=== PATIENT | female | born 1950 | race Caucasian/White ===

== ENCOUNTER → 2019-01-05 | Outpatient (CLI) | payer MEDICARE ==
[~2019-01-05] MED LIST: AZIT250 PO; Aspirin EC81 MG PO; Flonase 0.05% N16 GM; LEVSOD75 PO; Metformin HCl500 MG PO
[2019-01-05 12:39] LABS: BASOPHILS ABSOLUTE AUTO 0.07 K/mm3 (0.00-0.23); BASOPHILS PERCENT AUTO 1 % (0-2); EOSINOPHILS PERCENT AUTO 1 % (0-6); Hematocrit 44.9 % (33.0-51.0); Hemoglobin 14.7 g/dL (11.5-16.0); IMMATURE GRAN ABSOLUTE AUTO 0.03 K/mm3 (0.00-0.10); IMMATURE GRAN PERCENT AUTO 0 % (0-1); LYMPHOCYTES ABSOLUTE AUTO 1.65 K/mm3 (0.84-5.20); LYMPHOCYTES PERCENT AUTO 19 % (21-46); MONOCYTES ABSOLUTE AUTO 0.75 K/mm3 (0.16-1.47); MONOCYTES PERCENT AUTO 9 % (4-13); Mean Corpuscular HGB 29.7 pg (26.0-34.0); Mean Corpuscular HGB Conc 32.7 g/dL (31.5-36.5); Mean Corpuscular Volume 91 fL (80-100); NEUTROPHILS ABSOLUTE AUTO 6.08 K/mm3 (1.96-9.15); NEUTROPHILS PERCENT AUTO 70 % (41-73); Platelet Count 323 K/mm3 (150-400); RDW Coefficient Variation 14.5 % (11.7-14.2); RDW Standard Deviation 47.9 fL (35.1-46.3); Red Blood Cell Count 4.95 M/mm3 (3.80-5.20); White Blood Cell Count 8.68 K/mm3 (4.00-11.30)
[2019-01-05 13:35] LABS: International Normalized Ratio 0.98; Prothrombin Time Results 10.4 Sec (9.7-11.5)
== END | disposition home or self-care (01) ==
LOC: LAB SHORT 12:34 → LAB EV 12:34
PROVIDERS: Family Medicine
DX: Z79.01 Long term (current) use of anticoagulants (principal); Z51.81 Encounter for therapeutic drug level monitoring; C80.0 Disseminated malignant neoplasm, unspecified
CPT/HCPCS: 85025; 85610; 85730

== ENCOUNTER 2019-01-06 13:46 | Inpatient (IN) | payer MEDICARE ==
[~2019-01-06] VITALS: Ht 160 cm; Wt 77.8 kg
[2019-01-06] MEDS ORDERED: AZIT250 PO (14:26)
[2019-01-06] MEDS ORDERED: Flonase 0.05% N16 GM (14:26)
[2019-01-06] MEDS ORDERED: Metformin HCl500 MG PO (14:26)
[2019-01-06 15:06] LABS: BASOPHILS ABSOLUTE AUTO 0.05 K/mm3 (0.00-0.23); BASOPHILS PERCENT AUTO 1 % (0-2); EOSINOPHILS ABSOLUTE AUTO 0.11 K/mm3 (0.00-0.68); EOSINOPHILS PERCENT AUTO 1 % (0-6); Hemoglobin 14.3 g/dL (11.5-16.0); IMMATURE GRAN ABSOLUTE AUTO 0.03 K/mm3 (0.00-0.10); IMMATURE GRAN PERCENT AUTO 0 % (0-1); LYMPHOCYTES ABSOLUTE AUTO 1.94 K/mm3 (0.84-5.20); LYMPHOCYTES PERCENT AUTO 21 % (21-46); MONOCYTES ABSOLUTE AUTO 0.82 K/mm3 (0.16-1.47); MONOCYTES PERCENT AUTO 9 % (4-13); Mean Corpuscular HGB 29.7 pg (26.0-34.0); Mean Corpuscular HGB Conc 32.5 g/dL (31.5-36.5); Mean Corpuscular Volume 92 fL (80-100); NEUTROPHILS ABSOLUTE AUTO 6.41 K/mm3 (1.96-9.15); NEUTROPHILS PERCENT AUTO 69 % (41-73); Platelet Count 339 K/mm3 (150-400); RDW Coefficient Variation 14.2 % (11.7-14.2); RDW Standard Deviation 47.7 fL (35.1-46.3); Red Blood Cell Count 4.81 M/mm3 (3.80-5.20); White Blood Cell Count 9.36 K/mm3 (4.00-11.30)
[2019-01-06 15:20] LABS: Alanine Aminotransfer (ALT/SGP 30 U/L (12-78); Albumin, Blood 3.3 g/dL (3.4-5.0); Albumin/Globulin Ratio 0.6 (0.8-1.8); Alk Phos 74 U/L (50-136); Anion Gap 8 mmol/L (6-16); Aspartate Aminotrans (AST/SGOT 35 U/L (12-37); Bilirubin, Total 0.5 mg/dL (0.1-1.0); Blood Urea Nitrogen 12 mg/dL (8-24); Bun/Creatinine Ratio 18.1 (12.0-20.0); CO2, Blood 26 mmol/L (21-32); Chloride, Blood 105 mmol/L (98-108); Creatinine, Blood 0.66 mg/dL (0.40-1.00); Globulin, Blood 5.1 g/dL (2.2-4.0); Glomerular Filtration Rate >60 (60-); Glucose, Blood 106 mg/dL (70-99); Potassium, Blood 4.2 mmol/L (3.5-5.5); Sodium, Blood 139 mmol/L (136-145); Total Protein, Blood 8.4 g/dL (6.4-8.2); Troponin I <0.015 ng/mL (0.000-0.040)
[2019-01-06] MEDS ORDERED: LEVSOD75 PO (16:38)
[2019-01-06] MEDS ORDERED: Aspirin EC81 MG PO (16:39)
--- NOTE | 2019-01-06 19:00 | NUR ---
Initial Visit: Palliative Care Consult for Advanced Care Planning, AD/POLST. Pt is A&Ox4 and reports a tolerable pain level of 4/10. She states the pain worsens with coughing. Pt also reports 6/7 anxiety and 4/7 depression. Pt Natan is present during visit. Engaged in therapeutic conversations regarding goals of care. Pt reports that she lives at home with Natan and has adequate support between family, friends, and neighbors. She is of Orthodoxy nico but has not practiced this methodist is some time. Pt reports that she is independent and does not require assistance with her ADLs. Pt and Natan report a lot of the anxiety is due to not knowing exactly what to do and the waiting for tests and results. Allowed Pt and to express concerns and frustrations. Natan states Tiarra (Pt) has always dealt with the bills and does not even know where to begin. Pt states that she really has not had a chance to process everything at this time. She states that she is waiting to know exactly what she is dealing with. Encouraged Pt and to tell each other fears and to start thinking about plans for any scenario. Discussed AD/POLST and Pt expresses interest. Educated Pt on each section of forms and educated on risk factors. Pt denies need for any intervention for her anxiety at this time. She reports distraction helps manage her anxiety. Recommended to Pt to discuss with her PCP regarding her depression symptoms as well. No other concerns at this time. Plan: Obtain copy of POLST/AD once completed. Will remain available.
[2019-01-07 05:29] LABS: International Normalized Ratio 1.01; Prothrombin Time Results 10.7 Sec (9.7-11.5)
--- NOTE | 2019-01-07 05:46 | NUR ---
SHIFT SUMMARY PT REPORTS SHE SLEPT WELL LAST NIGHT. AOX4. DENIES N/V. VSS. REPORTS SOB W/EXERTION, SPO2 >90% ON 2L SUPPLEMENTAL O2 W/EVEN & UNLABOURED BREATHING. INSPIRATORY WHEEZES HEARD IN RUL/RLL. PT REPORTS 5/10 PAIN IN R SIDE OF NECK & CHEST, MEDICATED PER ORDERS. R SIDE OF NECK HAS A GOLFBALL SIZE SWOLLEN MASS, WHICH PT & STATE HAS GOTTEN WORSE. CALL LIGHT IS IN REACH & I WILL CONTINUE TO MONITOR PT.
--- NOTE | 2019-01-07 14:53 | NUR ---
PATIENT ALERT AND ORIENTED. GETS VERY SOB WITH MINIMAL MOVEMENT SO OXYGEN INCREASED BEFORE MOVING TO BSC OR BATHROOM. HUMAN SERVICES MANAGER AND ONCOLOGY HAVE BEEN IN TO SEE PATIENT. DOWN TO RADIOLOGY FOR BIOPSY.COOPERATIVE. FAIRLY PLEASANT CONSIDERING DIAGNOSIS. REPORT TO BUFFY CARO
--- NOTE | 2019-01-07 18:29 | NUR ---
SHIFT SUMMARY PATIENT HAS HAD NO ACUTE CHANGES. SHE IS REQUIRING 2L O2 AT REST. AND THEN 4L O2 WITH EXERTION. SHE IS IN GOOD SPIRITS, ABLE TO MAKE HER NEEDS KNOWN.
--- NOTE | 2019-01-08 07:29 | NUR ---
NOC SHIFT SUMMARY PT IS PLEASANT AND COOPERATIVE WITH CARE. SHE IS ON 2LNC THIS NIGHT. VSS. PT WAS ABLE TO SLEEP FOR MUCH OF THE NIGHT. THIS MORNING WITH 0600 MED PASS SHE COMPLAINED OF DIFFICULTY SWOLLOWING HER MEDS. RESP ARE STILL EVEN AND UNLABORED. SPEAKS NORMALLY. INFORMED ONCOMING RN OF THIS CHANGE. PT APPEARS IN NO ACUTE DISTRESS AT THIS TIME.
--- NOTE | 2019-01-08 18:44 | NUR ---
PATIENT CONTINUES TO BE SOB AND ON 3 L O2. SHE IS A/O AND COMPLIANT WITH CARES BUT STATES SHE IS FEELING WEAKER. SHE WANTED A SHOWER EARLY ON IN THE SHIFT BUT THE DAY PROGRESSED SHE REFUSED AND SAID SHE DID NOT HAVE THE ENERGY. SHE REQUESTED A BED BATH. PATIENT ON MECH SOFT DUE TO SWALLOWING DIFFICULITES.
--- NOTE | 2019-01-09 07:50 | NUR ---
NOC SHIFT SUMMARY PT IS PLEASANT AND COOPERATIVE WITH CARE THIS NIGHT. AAOX4. PAIN WELL CONTROLLED. SHE DID HAVE A COUGHING SPELL THAT RESULTED IN SOME SOB. RT CALLED AND WAS GIVEN BREATHING TREATMENT. SHE RECOVERED SHORTLY AFTER. HAS SLEPT ONLY OFF AND ON THIS NIGHT. HAS CONTINUED TO REQUIRE 4LNC. VSS. REPORT TO ONCOMING RN.
--- NOTE | 2019-01-09 18:36 | NUR ---
SHIFT SUMMARY DIFFICULTY SWALLOWING DUE TO MEDIASTINAL MASS WITH METS. PLEASANT A AND OX3. ROXICODONE AND TYLENOL SCHEDULED FOR PAIN CONTROL. HX COPD WITH PNEUMONIA. STANDBY ASSIST WITH FWW. PLAN TO GO HOME AND SEE DR. HOANG OUTPATIENT.
--- NOTE | 2019-01-10 05:35 | NUR ---
SHIFT SUMMARY PT DID NOT SLEEP WELL THIS EVENING. PT REPORTS THAT SHE CANNOT LAY FLAT DUE TO HER BREATHING AND SWALLOWING BUT COULD NOT FIND A COMFORTABLE POSITION FOR SLEEPING SITTING UP. OFFERED RECLINER BUT PATIENT DECLINED. PT FELL ASLEEP OFF AND ON SITTING UP. REPORTED GENERALIZED PAIN "FROM BEING IN BED SO MUCH". MEDICATED ORDERED Q 4 HOUR 5 MG ROXICODONE. PT REFUSED SCHEDULED TYLENOL STATING THAT IT WAS DIFFICULT FOR HER TO EAT IT CRUSHED AND THAT SHE WAS UNABLE TO SWALLOW THEM WHOLE. PT ON 2.5 L O2 NC. HOME O2 EVAL DONE YESTERDAY SO PT COULD GO HOME WITH O2. PT HAS NAGGING MOSTLY NONPRODUCTIVE COUGH THAT MAKES IT DIFFICULT FOR HER TO BREATH AT TIMES. HOWEVER PT RECOVERS QUICKLY. OTHERWISE NO ACUTE CHANGES. VSS. WILL CONTINUE TO MONITOR AND REPORT TO DAY RN.
--- NOTE | 2019-01-10 07:25 | NUR ---
DR. HOANG SAW PT THIS A.M. AND REPORTED NO BIOPSY RESULTS HAD BEEN RECEIVED. PT STATED HER PREFERENCE TO REMAIN IN THE HOSPITAL UNTIL TOMORROW BASED ON ANXIETY AND SWALLOWING DIFFICULTIES. ALL ABOVE REPORTED TO DR. DOWD.
--- NOTE | 2019-01-10 18:13 | NUR ---
SHIFT SUMMARY ABLE TO DISCHARGE WHEN READY BUT REQUESTED TO STAY UNTIL TOMORROW DUE TO ANXIETY DUE TO NEW CANCER DX AND SWALLOWING DIFFICULTIES. ABULATES WITH WALKER IN ROOM. MEDICATED FOR PAIN ONCE THIS SHIFT. FAMILY IN TO VISIT THIS AFTERNOON. OX4. CONTINENT. PLAN TO FOLLOW UP WITH DR. HOANG FOR OUTPATIENT TREATMENT.
--- NOTE | 2019-01-11 05:21 | NUR ---
SHIFT SUMMARY PT CONTINUED TO HAVE A DIFFICULT TIME SLEEPING. ATTEMPTED THE RECLINER THAT PT HAD PREVIOUSLY REFUSED AND PT WAS MORE UNCOMFORTABLE IN IT THAN IN THE BED. PT MUST BE SITTING UP VERY HIGH OR SHE DOES NOT FEEL LIKE SHE CAN BREATH WELL ENOUGH BUT THIS MAKES IT DIFFICULT FOR HER TO BE COMFORTABLE. PT PAINFUL FROM ODD POSITIONING. MEDICATED ORDERED WITH SCHEDULED ROXICODONE. PT ANXIOUS AT TIMES, ESPECIALLY REGARDING HER BREATHING. MEDICATED X 2 W/ XANAX. PT CONTINUES TO GET SOB W/ AMBULATION. ON 3-4 L THIS EVENING WITH O2 SATS IN THE LOW TO MID 90'S. PT RESTING IN BED AT THIS TIME. VSS. WILL CONTINUE TO MONITOR AND REPORT TO DAY RN.
--- NOTE | 2019-01-11 19:22 | NUR ---
SHIFT SUMMARY PT A&Ox4. CALM AND COOPERATIVE WITH CARE. PT SITTING ON SIDE OF BED FOR MAJORITY OF SHIFT. UP WITH 1 PERSON ASSIST TO BSC. PT REPORTS UPPER CHEST/CLAVICAL PAIN AND HEADACHE, MEDICATED WITH SCHEDULED ROXICODONE X2. PT SOB WITH EXERTION, IN FOLWERS POSITION, 3-4L O2 VIA NC. PT DENIES NAUSEA. PT TAKING MED WITH APPLESAUCE. PT RECEIVING PO ANTIBIOTICS AND STEROIDS. VSS. NO OTHER ACUTE CHANGES NOTED DURING SHIFT. REPORT GIVEN TO ONCOMING RN.
--- NOTE | 2019-01-12 04:34 | NUR ---
SHIFT SUMMARY PT HAD DIFFICULT NIGHT AGAIN THIS EVENING. APPEARS TO STRUGGLE MORE WITH BREATHING AND ANXIETY DURING THE NIGHT. REQUESTED MULTIPLE TIMES FOR O2 TO BE TURNED UP TO 4 L. REMAINED 3-4 L THROUGHOUT THE NIGHT. VERY SOB W/ AMBULATION. CONTINUES TO STRUGGLE TO SWALLOW. WAS UNABLE TO EAT DINNER, REQUESTED SHERBERT ICE CREAM MULTIPLE TIMES. MEDICATED X 2 WITH XANAX, SLEEPING FOR SHORT TIMES FOLLOWING. PT PRODUCED A SMALL AMOUNT OF SPUTUM THAT WAS THICK AND BROWN. PT HAD DIFFICULT TIME GETTING SPUTUM TO COUGH UP. PT ALSO HAS DIFFICULT TIME GETTING COMFORTABLE DUE TO HAVING TO SIT VERY HIGH UP IN ORDER TO FEEL LIKE SHE CAN BREATH. MEDICATED WITH SCHEDULED ROXICODONE. PT RESTING AT THIS TIME. VSS. WILL CONTINUE TO MONITOR.
[2019-01-12 11:22] LABS: Albumin, Blood 3.1 g/dL (3.4-5.0); Anion Gap 7 mmol/L (6-16); Blood Urea Nitrogen 24 mg/dL (8-24); Bun/Creatinine Ratio 39.7 (12.0-20.0); CO2, Blood 31 mmol/L (21-32); Calcium, Blood 9.3 mg/dL (8.5-10.1); Chloride, Blood 103 mmol/L (98-108); Creatinine, Blood 0.61 mg/dL (0.40-1.00); Glomerular Filtration Rate >60 (60-); Glucose, Blood 150 mg/dL (70-99); Phosphorus, Blood 2.5 mg/dL (2.5-4.9); Sodium, Blood 141 mmol/L (136-145)
--- NOTE | 2019-01-12 18:32 | NUR ---
PT IS VERY SOB AND ANXIOUS, XANAX PO Q [address] HOANG WAS INTO TO SEE PT THIS AFTERNOON AT APPROX 1300. DISCUSSED CURRENT DIAGNOSIS AND CHEMO TREATMENT TO BEGIN TODAY. NEW IV STARTED LFA #20 BY RADHA CARO. PT PREMEDICATED WITH IV DECADRON AND IV ZOFRAN 30 MIN PRIOR TO CHEMO. ETOPOSIDE INFUSED WITHOUT DIFFICULTY, VITALS STABLE, IV SITE PATENT, FLUSHING WELL, NO REDNESS NOTED, IV FLUSHED WITH 30ML NS AND CARBOPLATIN HUNG WITH NEW TUBING. PT ALSO TOLERATED THIS WELL, IV SITE REMAINS PATENT, NO REDNESS. NO C/O OF N/V OR OTHER DISCOMFORT. WILL CONTINUE TO MONITOR AND REPORT TO ONCOMING VANIA
--- NOTE | 2019-01-13 03:44 | NUR ---
SHIFT SUMMARY PT ADMITTED FOR POST OBSTRUCTIVE PENUMONIA. FULL CODE. ADA DIET. ASPIRATION PRECAUTIONS. NO STRAW. NECTOR THICK LIQUIDS. UP IN CHAIR FOR MEALS. CBG AT AC AND HS. MEDS WHOLE, HALF, OR CRUSHED IN APPLESAUCE. LOVENOX FOR DVT PROPHYLAXIS. PT HAD FIRST DOSE OF CHEMO YESTERDAY AND HAS APPEARED TO TOLLERATE THIS WELL SO FAR. 1 PERSON ASSIST TO BSC. 20G IV TO R FA AND LFA FOR CHEMO. 4L O2 VIA NC. 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 THE PT HAS APPEARED VERY LETHARGIC THROUGHOUT THE SHIFT SO FAR. THE PT IS REFUSING NECTOR THICK LIQUIDS AND HAS INSISTED THIN. THE PT IS ALERT, ORIENTED, PLEASENT, AND COOPERATIVE WITH CARE. THE PT IS NOTED TO HAVE COUGH AND TO PRIMARILY SIT AT BEDSIDE. WILL CONTINUE TO MONITOR.
[2019-01-13 05:42] LABS: BASOPHILS ABSOLUTE AUTO 0.01 K/mm3 (0.00-0.23); BASOPHILS PERCENT AUTO 0 % (0-2); EOSINOPHILS PERCENT AUTO 0 % (0-6); Hematocrit 47.7 % (33.0-51.0); Hemoglobin 14.9 g/dL (11.5-16.0); IMMATURE GRAN ABSOLUTE AUTO 0.12 K/mm3 (0.00-0.10); IMMATURE GRAN PERCENT AUTO 1 % (0-1); LYMPHOCYTES ABSOLUTE AUTO 0.97 K/mm3 (0.84-5.20); LYMPHOCYTES PERCENT AUTO 7 % (21-46); MONOCYTES ABSOLUTE AUTO 1.32 K/mm3 (0.16-1.47); MONOCYTES PERCENT AUTO 9 % (4-13); Mean Corpuscular HGB 29.7 pg (26.0-34.0); Mean Corpuscular HGB Conc 31.2 g/dL (31.5-36.5); Mean Platelet Volume 9.1 fL (9.1-12.4); NEUTROPHILS ABSOLUTE AUTO 11.83 K/mm3 (1.96-9.15); NEUTROPHILS PERCENT AUTO 83 % (41-73); Platelet Count 337 K/mm3 (150-400); RDW Coefficient Variation 15.1 % (11.7-14.2); RDW Standard Deviation 52.9 fL (35.1-46.3); Red Blood Cell Count 5.01 M/mm3 (3.80-5.20); White Blood Cell Count 14.25 K/mm3 (4.00-11.30)
[2019-01-13 05:46] LABS: Mean Corpuscular Volume 95 fL (80-100)
[2019-01-13 06:05] LABS: Alanine Aminotransfer (ALT/SGP 100 U/L (12-78); Albumin/Globulin Ratio 0.6 (0.8-1.8); Alk Phos 81 U/L (50-136); Anion Gap 6 mmol/L (6-16); Aspartate Aminotrans (AST/SGOT 47 U/L (12-37); Bilirubin, Total 0.4 mg/dL (0.1-1.0); Blood Urea Nitrogen 22 mg/dL (8-24); Bun/Creatinine Ratio 37.8 (12.0-20.0); CO2, Blood 30 mmol/L (21-32); Chloride, Blood 106 mmol/L (98-108); Creatinine, Blood 0.58 mg/dL (0.40-1.00); Glomerular Filtration Rate >60 (60-); Glucose, Blood 142 mg/dL (70-99); Potassium, Blood 4.6 mmol/L (3.5-5.5); Sodium, Blood 142 mmol/L (136-145)
--- NOTE | 2019-01-13 14:45 | NUR ---
LFA IV SITE FLUSHED WITH 20ML NS, GOOD BLOOD RETURN AND FLUSHED AGAIN. ETOPOSIDE VERIFIED WITH RADHA CARO AND STARTED TO LFA SITE. PT C/O OF BURNING AND ETOPOSIDE STOPPED. NO REDNESS OR SWELLING NOTED AND SITE NOT PAINFUL TO TOUCH. NEW SITE STARTED ON LFA AND ETOPOSIDE INFUSING WITHOUT DIFFICULTY. OLD SITE DISCONTINUED, NO REDNESS, PAIN OR SWELLING NOTED. WILL CONTINUE TO MONITOR
--- NOTE | 2019-01-13 16:00 | NUR ---
ETOPOSIDE INFUSION COMPLETED. NO C/O PAIN OR TENDERNESS AT NEW IV SITE. DISCONTINUED SITE REMAINS WITHOUT REDNESS, PAIN OR SWELLING. TUBING REMOVED FROM PUMP, PLACED IN CHEMO BAG AND TAKEN TO DIRTY HOLD AND PLACED IN CHEMO BIN.
--- NOTE | 2019-01-13 19:01 | NUR ---
PT HAS HAD A MORE DIFFICULT TIME BREATHING TODAY AND INCREASED ANXIETY. FLUTTER VALVE GIVEN AND APPEARS TO HELP WITH BREATHING, MEDICATED FOR ANXIETY PER EMAR. SHE TOLERATED CHEMO, NO REPORTS OF NAUSEA. ONE DOSE REMAINS FOR TOMORROW. NO ACUTE CHANGES NOTED, WILL CONTINUE TO MONITOR AND REPORT TO ONCOMING RN
--- NOTE | 2019-01-14 02:25 | NUR ---
rt fa iv pulled by PT . ike wnl. secured lt fa IV with tanvi.
--- NOTE | 2019-01-14 02:52 | NUR ---
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 She is sitting on side of bed unable to lay flat or even in bed with HOB elevated. She denies acute pain and has some anxiety about dyspnea related to lung cancer with mets. Scheduled roxycodone 5 to 10 mg declined but convinced pt it may help her rest. Meds crushed in applesauce, poor appetite. PT has been declining nectar thick fluids. Lung sounds with rhonchi and wheeze, on 4 l nc and still has some dyspnea, dislikes neb treatments. Had several iv chemotherapy given and had 2 IV sites. PT removed rt forearm IV. PT confirms full code status. Has 2 adult Children, 5 Grandchildren. Has been tobacco smoker. Support offered. HAs xanax q 6 hrs prn. up with 1 assist to bathroom. PT on chemo precautions.
[2019-01-14 05:39] LABS: BASOPHILS ABSOLUTE AUTO 0.02 K/mm3 (0.00-0.23); BASOPHILS PERCENT AUTO 0 % (0-2); EOSINOPHILS ABSOLUTE AUTO 0.02 K/mm3 (0.00-0.68); EOSINOPHILS PERCENT AUTO 0 % (0-6); Hematocrit 47.2 % (33.0-51.0); Hemoglobin 14.8 g/dL (11.5-16.0); IMMATURE GRAN PERCENT AUTO 1 % (0-1); LYMPHOCYTES ABSOLUTE AUTO 1.19 K/mm3 (0.84-5.20); LYMPHOCYTES PERCENT AUTO 7 % (21-46); MONOCYTES ABSOLUTE AUTO 1.27 K/mm3 (0.16-1.47); MONOCYTES PERCENT AUTO 8 % (4-13); Mean Corpuscular HGB Conc 31.4 g/dL (31.5-36.5); Mean Corpuscular Volume 96 fL (80-100); Mean Platelet Volume 9.3 fL (9.1-12.4); NEUTROPHILS ABSOLUTE AUTO 13.76 K/mm3 (1.96-9.15); NEUTROPHILS PERCENT AUTO 84 % (41-73); Platelet Count 325 K/mm3 (150-400); RDW Coefficient Variation 14.9 % (11.7-14.2); RDW Standard Deviation 52.3 fL (35.1-46.3); Red Blood Cell Count 4.93 M/mm3 (3.80-5.20); White Blood Cell Count 16.36 K/mm3 (4.00-11.30)
[2019-01-14 06:28] LABS: Alanine Aminotransfer (ALT/SGP 117 U/L (12-78); Albumin/Globulin Ratio 0.6 (0.8-1.8); Alk Phos 83 U/L (50-136); Anion Gap 6 mmol/L (6-16); Aspartate Aminotrans (AST/SGOT 68 U/L (12-37); Bilirubin, Total 0.6 mg/dL (0.1-1.0); Blood Urea Nitrogen 30 mg/dL (8-24); Bun/Creatinine Ratio 44.8 (12.0-20.0); CO2, Blood 28 mmol/L (21-32); Calcium, Blood 9.4 mg/dL (8.5-10.1); Chloride, Blood 109 mmol/L (98-108); Creatinine, Blood 0.67 mg/dL (0.40-1.00); Globulin, Blood 4.7 g/dL (2.2-4.0); Glomerular Filtration Rate >60 (60-); Glucose, Blood 160 mg/dL (70-99); Potassium, Blood 4.6 mmol/L (3.5-5.5); Sodium, Blood 143 mmol/L (136-145); Total Protein, Blood 7.7 g/dL (6.4-8.2)
--- NOTE | 2019-01-14 14:52 | NUR ---
Etoposide finished infusing. Pt tolerated well, continues to be SOB-especially with movement. IV site flushes well without redness or swelling.
[2019-01-14 17:28] LABS: PCO2 Arterial 51.3 mmHg (35-45); PO2 Arterial 65.5 mmHg (80-100); pH Blood Arterial 7.34 (7.35-7.45)
--- NOTE | 2019-01-14 18:33 | NUR ---
SHIFT SUMMARY PT UP IN CHAIR MOST OF DAY. INCREASED RESP DISTRESS WITH ANY MOVEMENT AND REQUIRES SEVERAL MINUTES TO RECOVER WITH COACHING ON RESP. AT BEDSIDE THIS MORNING. REPORTED SHE "JUST COULDN'T KEEP GOING LIKE THIS" DESCRIBING HER ONGOING RESP DISTRESS/SOB. GAVE XANAX AND SPOKE WITH MD ABOUT PTS FEELING SO POORLY. SEE NEW ORDERS. MORE DROWSY SINCE EXTRA 0.5MG LEWIS OF XANAX GIVEN. NOT EATING DUE TO TAKING SO MUCH ENERGY TO EAT AND BREATH WELL. 3RD DOES OF CHEMO GIVEN BY LUBE ATTENDANT TODAY.
[2019-01-15 05:14] LABS: BASOPHILS ABSOLUTE AUTO 0.01 K/mm3 (0.00-0.23); BASOPHILS PERCENT AUTO 0 % (0-2); EOSINOPHILS PERCENT AUTO 0 % (0-6); Hematocrit 48.1 % (33.0-51.0); IMMATURE GRAN ABSOLUTE AUTO 0.06 K/mm3 (0.00-0.10); IMMATURE GRAN PERCENT AUTO 0 % (0-1); LYMPHOCYTES ABSOLUTE AUTO 0.91 K/mm3 (0.84-5.20); LYMPHOCYTES PERCENT AUTO 6 % (21-46); MONOCYTES ABSOLUTE AUTO 0.52 K/mm3 (0.16-1.47); MONOCYTES PERCENT AUTO 4 % (4-13); Mean Corpuscular HGB 29.8 pg (26.0-34.0); Mean Corpuscular HGB Conc 31.2 g/dL (31.5-36.5); Mean Corpuscular Volume 96 fL (80-100); Mean Platelet Volume 9.5 fL (9.1-12.4); NEUTROPHILS PERCENT AUTO 90 % (41-73); Platelet Count 272 K/mm3 (150-400); RDW Coefficient Variation 15.1 % (11.7-14.2); RDW Standard Deviation 52.3 fL (35.1-46.3); Red Blood Cell Count 5.03 M/mm3 (3.80-5.20)
--- NOTE | 2019-01-15 05:56 | NUR ---
SHIFT SUMMARY PT IS A 68 Y/O FEMALE, ADMITTED FOR POST-OBSTUCTIVE PNEUMONIA. THE PT HAS BEEN VISIBLY SHORT OF BREATH THROUGH THE NIGHT, OCCASIONALLY TRIPODING AT THE SIDE OF THE BED, THOUGH HER O2 SATS REMAINED IN THE LOW-MID 90S. SHE WAS MEDICATED FOR CHEST PAIN WITH SCHEDULED PAIN MEDICATIONS DURING THE NIGHT, AND WAS MEDICATED WITH XANAX ONCE DURING THE NIGHT FOR ANXIETY RELATED TO HER ACUTE SHORTNESS OF BREATH. SHE DENIED ANY COMPLAINTS OF NAUSEA. PT'S HEART RATE WAS ELEVATED THROUGH THE NIGHT IN THE 110S, ALL OTHER VITALS REMAINED STABLE. NO OTHER ACUTE CHANGES IN PT CONDITION NOTED. WILL CONTINUE TO MONITOR AND TREAT PER EMAR UNTIL HAND OFF TO DAY SHIFT.
[2019-01-15 06:37] LABS: Alanine Aminotransfer (ALT/SGP 153 U/L (12-78); Albumin, Blood 3.2 g/dL (3.4-5.0); Albumin/Globulin Ratio 0.7 (0.8-1.8); Alk Phos 97 U/L (50-136); Anion Gap 5 mmol/L (6-16); Aspartate Aminotrans (AST/SGOT 81 U/L (12-37); Bilirubin, Total 0.7 mg/dL (0.1-1.0); Blood Urea Nitrogen 35 mg/dL (8-24); Bun/Creatinine Ratio 50.9 (12.0-20.0); CO2, Blood 29 mmol/L (21-32); Calcium, Blood 9.6 mg/dL (8.5-10.1); Chloride, Blood 110 mmol/L (98-108); Creatinine, Blood 0.69 mg/dL (0.40-1.00); Globulin, Blood 4.6 g/dL (2.2-4.0); Glomerular Filtration Rate >60 (60-); Glucose, Blood 176 mg/dL (70-99); Potassium, Blood 4.5 mmol/L (3.5-5.5); Sodium, Blood 144 mmol/L (136-145); Total Protein, Blood 7.8 g/dL (6.4-8.2)
--- NOTE | 2019-01-15 15:00 | NUR ---
SPOKE WITH [facility] ABOUT AN APPT THIS A.M. TIME WAS MADE FOR 1515. THORACENTESIS DONE THIS MORNING. [facility] W/C HERE TO PICK PT UP AT 1445. WAS DOZING AFTER RECEIVING XANAX. ASSISTED TO W/C AND TAKEN TO APPT.
--- NOTE | 2019-01-15 17:34 | NUR ---
SHIFT SUMMARY PT RETURNED FROM [facility] AT 1710 VIA W/C. TIRED AND ASKED TO LAY IN BED. KEEP HEAD BENT DOWN ALWAYS. DYSPNEA APPEARS LESS SINCE THORA. HEART RATE ELEVATED AT THIS TIME DUE TO ACTIVITY TO COMMODE AND BACK TO BED. CONTINUES WITH MINIMAL TO NO INTAKE WITH MEALS. ENSURES REQUESTED FOR EACH MEAL.
[2019-01-16 05:53] LABS: EOSINOPHILS ABSOLUTE AUTO 0.01 K/mm3 (0.00-0.68); EOSINOPHILS PERCENT AUTO 0 % (0-6); Hematocrit 48.8 % (33.0-51.0); Hemoglobin 15.2 g/dL (11.5-16.0); IMMATURE GRAN ABSOLUTE AUTO 4.49 K/mm3 (0.00-0.10); IMMATURE GRAN PERCENT AUTO 10 % (0-1); LYMPHOCYTES ABSOLUTE AUTO 1.12 K/mm3 (0.84-5.20); LYMPHOCYTES PERCENT AUTO 2 % (21-46); MONOCYTES ABSOLUTE AUTO 0.23 K/mm3 (0.16-1.47); MONOCYTES PERCENT AUTO 1 % (4-13); Mean Corpuscular HGB 30.3 pg (26.0-34.0); Mean Corpuscular HGB Conc 31.1 g/dL (31.5-36.5); Mean Corpuscular Volume 97 fL (80-100); Mean Platelet Volume 10.2 fL (9.1-12.4); NEUTROPHILS ABSOLUTE AUTO 40.81 K/mm3 (1.96-9.15); NEUTROPHILS PERCENT AUTO 88 % (41-73); Platelet Count 228 K/mm3 (150-400); RDW Coefficient Variation 15.1 % (11.7-14.2); RDW Standard Deviation 54.3 fL (35.1-46.3); Red Blood Cell Count 5.02 M/mm3 (3.80-5.20); White Blood Cell Count 46.67 K/mm3 (4.00-11.30)
[2019-01-16 05:54] LABS: BASOPHILS ABSOLUTE AUTO 0.01 K/mm3 (0.00-0.23); BASOPHILS PERCENT AUTO 0 % (0-2)
[2019-01-16 05:58] LABS: Alanine Aminotransfer (ALT/SGP 117 U/L (12-78); Albumin, Blood 2.6 g/dL (3.4-5.0); Albumin/Globulin Ratio 0.6 (0.8-1.8); Alk Phos 90 U/L (50-136); Anion Gap 4 mmol/L (6-16); Aspartate Aminotrans (AST/SGOT 58 U/L (12-37); Bilirubin, Total 0.8 mg/dL (0.1-1.0); Blood Urea Nitrogen 30 mg/dL (8-24); Bun/Creatinine Ratio 51.7 (12.0-20.0); CO2, Blood 30 mmol/L (21-32); Calcium, Blood 9.3 mg/dL (8.5-10.1); Chloride, Blood 114 mmol/L (98-108); Creatinine, Blood 0.58 mg/dL (0.40-1.00); Globulin, Blood 4.7 g/dL (2.2-4.0); Glomerular Filtration Rate >60 (60-); Glucose, Blood 165 mg/dL (70-99); Potassium, Blood 4.5 mmol/L (3.5-5.5); Sodium, Blood 148 mmol/L (136-145); Total Protein, Blood 7.3 g/dL (6.4-8.2)
--- NOTE | 2019-01-16 06:41 | NUR ---
SHIFT SUMMARY PT IS A 5O Y/O FEMALE, ADMITTED WITH POST OBSTRUCTIVE PNEUMONIA. SHE IS STILL COMPLAINING OF SEVERE SOB, AND MOVES BETWEEN SITTING STRAIGHT UP ON THE BED AND TRIPODING ON THE SIDE OF THE BED. THE PT ALSO APPEARS MORE CONFUSED TONIGHT, AT TIMES NOT KNOWING WHERE SHE WAS OR REMEMBERING STAFF. THE PT REMAINED ON 4L OF O2 VIA NC, AND WAS MEDICATED FOR ANXIETY RELATED TO HER SOB WITH PRN XANAX AND IV MORPHINE. SHE ALSO COMPLAINED OF MILD CHEST PAIN, WHICH SHE WAS MEDICATED WITH SCHEDULED MS CONTIN AND TYLENOL. NO COMPLAINTS OF NAUSEA. VITALS REMAINED STABLE. NO OTHER ACUTE CHANGES IN PT CONDITION NOTED. WILL CONTINUE TO MONITOR AND TREAT PER EMAR.
--- NOTE | 2019-01-16 12:55 | NUR ---
STUDENT NURSE STEPHEN ASSISTING WITH CARE. AGREE WITH HER CHARTING AND CARE.
--- NOTE | 2019-01-16 16:45 | NUR ---
SHIFT SUMMARY PATIENT HAS BEEN PLEASANTLY CONFUSED TODAY. SHE IS STILL A FULL CODE AND PALLIATIVE CARE NEEDS TO CHECK IN WITH THE FAMILY AND THE PATIENT AND SEE WHAT HER WISHES WERE. FELT THERE WAS A SIGNIFICANT LACK OF COMMUNICATION BETWEEN THE PATIENT AND HER FAMILY AND HER DOCTORS. THE PATIENT HAS LACK OF COMMUNICATION ABOUT HER PROGNOSIS AND WHAT SHE IS LOOKING AT TREATMENT LOWE. SHE HAD THE PLEURX DRAIN PLACED TODAY, SHE IS CONNECTED TO THE [facility] AND HAS A PRN ORDER TO DRAIN THE FLUID FROM HER LUNG. SHE IS NO LONGER CHEMO PRECAUTIONS, AND IS ON RADIATION TREATMENTS. THIS WILL CONTINUE ON SATURDAY. PATIENT IS LETHARGIC AND COMPLAINS OF PAIN. SHE HAS A TAB ALARM ON DUE TO HER BED ALARM GOING ON. SHE IS UNHAPPY WITH HER DIET IN THE HOSPITAL SHE DOES NOT LIKE THE THICKENED WATER. SHE WAS STARTED ON CLINIMIX TODAY AND STATES SHE FEELS PARCHED.
--- NOTE | 2019-01-17 04:45 | NUR ---
NOC SHIFT SUMMARY PT HAS BEEN PLEASANT AND COOPERATIVE WITH CARE THIS NIGHT. SHE HAS BEEN CONFUSED AT TIMES BUT IS EASILY REDIRECTABLE. CONTINUES TO BE ON 4-5L NC. WHEN SHE FALLS ASLEEP HER SATS ARE IN THE MID 90'S. WHEN SHE WAKES SHE IS VERY ANXIOUS AND BREATHS FASTER AND MORE SHALLOW CAUSING HER SATS FALL TO AROUND 90. HAVE TREATED PER EMAR. CALLED TO HOSPITALIST FOR SOMETHING FOR ANXIETY/SLEEP AND MELATONIN 5MG WAS PERSCRIBED. HER VS HAVE BEEN STABLE AND SHE CURRENTLY APPEARS IN NO ACUTE DISTRESS. WILL CONTINUE TO MONITOR.
[2019-01-17 05:24] LABS: Hemoglobin 14.9 g/dL (11.5-16.0); LYMPHOCYTES ABSOLUTE AUTO 0.54 K/mm3 (0.84-5.20); LYMPHOCYTES PERCENT AUTO 1 % (21-46); MONOCYTES ABSOLUTE AUTO 0.13 K/mm3 (0.16-1.47); MONOCYTES PERCENT AUTO 0 % (4-13); Mean Corpuscular HGB 30.1 pg (26.0-34.0); Mean Corpuscular HGB Conc 30.4 g/dL (31.5-36.5); Mean Corpuscular Volume 99 fL (80-100); Mean Platelet Volume 10.6 fL (9.1-12.4); Platelet Count 152 K/mm3 (150-400); RDW Coefficient Variation 15.2 % (11.7-14.2); RDW Standard Deviation 55.4 fL (35.1-46.3); Red Blood Cell Count 4.95 M/mm3 (3.80-5.20); White Blood Cell Count 47.97 K/mm3 (4.00-11.30)
[2019-01-17 05:25] LABS: BASOPHILS PERCENT AUTO 0 % (0-2); EOSINOPHILS PERCENT AUTO 0 % (0-6); IMMATURE GRAN ABSOLUTE AUTO 8.06 K/mm3 (0.00-0.10); IMMATURE GRAN PERCENT AUTO 17 % (0-1); NEUTROPHILS ABSOLUTE AUTO 39.24 K/mm3 (1.96-9.15); NEUTROPHILS PERCENT AUTO 82 % (41-73)
[2019-01-17 05:48] LABS: BAND PERCENT MAN 7 % (0-8); BASOPHILS PERCENT MAN 0 % (0-2); EOSINOPHILS PERCENT MAN 0 % (0-6); MONOCYTES PERCENT MAN 0 % (4-13); NEUTROPHILS ABSOLUTE MAN 47.97 K/mm3 (1.96-9.15); SEG NEUTROPHILS PERCENT MAN 93 % (41-73); TOTAL CELLS COUNTED 100
[2019-01-17 05:53] LABS: Alanine Aminotransfer (ALT/SGP 91 U/L (12-78); Albumin, Blood 2.3 g/dL (3.4-5.0); Albumin/Globulin Ratio 0.5 (0.8-1.8); Alk Phos 111 U/L (50-136); Anion Gap 7 mmol/L (6-16); Aspartate Aminotrans (AST/SGOT 46 U/L (12-37); Bilirubin, Total 0.4 mg/dL (0.1-1.0); Blood Urea Nitrogen 30 mg/dL (8-24); Bun/Creatinine Ratio 59.8 (12.0-20.0); CO2, Blood 25 mmol/L (21-32); Calcium, Blood 9.1 mg/dL (8.5-10.1); Chloride, Blood 121 mmol/L (98-108); Globulin, Blood 4.3 g/dL (2.2-4.0); Glomerular Filtration Rate >60 (60-); Glucose, Blood 230 mg/dL (70-99); Magnesium, Blood 2.6 mg/dL (1.6-2.4); Phosphorus, Blood 2.7 mg/dL (2.5-4.9); Potassium, Blood 4.7 mmol/L (3.5-5.5); Sodium, Blood 153 mmol/L (136-145); Total Protein, Blood 6.6 g/dL (6.4-8.2)
[2019-01-17 10:50] LABS: PCO2 Arterial 47.3 mmHg (35-45); pH Blood Arterial 7.43 (7.35-7.45)
--- NOTE | 2019-01-17 13:08 | NUR ---
SUSHILA AT [facility] STATES PATIENT HAS NEW APPOINTMENT ON Saturday01/19/19 TIME 1215. NURSE TO CALL TOMORROW FOR TRANSPORT FOR PATIENT TO THE [facility].
--- NOTE | 2019-01-17 13:15 | NUR ---
SPOKE WITH DR. HOANG. HE STATES THAT IT DOES NOT MATTER ABOUT THE WHITE BLOOD CELL COUNT. HE WANTS ALL FIVE DOSES OF GRANIX. HE IS USING THIS PROPHYLACTICALLY AT THIS POINT TO KEEP HER FROM BECOMING NEUTROPENIC.
--- NOTE | 2019-01-17 13:35 | NUR ---
pt arrived to room pcu 11 form room 332 pt friend with her to sit with her she has been confused and pulling at her lines bed alarm placed tele on
--- NOTE | 2019-01-17 14:10 | NUR ---
Met Tiarra in her room. Fang and Spencer, friends and neighbors, are at her bedside. Tiarra is very somulent during my visit. She will wake up when spoken too, however she falls right back to sleep mid sentence when she is speaking. Spencer states she talked with Natan, pt's , earlier today and that she felt Tiarra's illness severity is starting to be realized. Spencer said that Natan asked her if Tiarra might not live much longer. Spencer said she didn't know, but that it might be a possibility. Called Natan on the phone after visiting with Tiarra, Fang and Spencer. Natan asked this ad writer if Tiarra was going to . This ad writer explained that it is a possiblity because she is very sick. Reviewed oncologist note and the treatments that can be done for Tiarra have been done and now time will tell if she is able to get stronger or if she continues to decline. Natan stated that he thought he and Tiarra had POLST forms somewhere, but he did not know where. Discussed code status with Natan and he agreed that he would want Tiarra to be a DNR with limited interventions at this time. Natan plans to come into the hospital to visit tomorrow. He will have had 3 doses of tamiflu by then and he will wear a mask. Natan asked if he could fill out a POLST form tomorrow also. Will plan to met Natan tomorrow and fill out a POLST form for Tiarra and give one to Natan for him to take to his PCP to sign. Tiarra's son is coming from [place], [place] and plans to be here later this evening. PC to follow for advanced care planning and POLST form. Spoke with Dr. Estrella and obtained a DNR order. Nursing updated.
--- NOTE | 2019-01-17 16:06 | NUR ---
PT HAVING TROUBLE BREATHING SOB PLEUROVAC 250 ML DRAINED RT CAME AND GAVE PT A NEB TX AND I GAVE PT 5 MG ROXANOL PT BIOX DECREASED TO 87% 5 L NC BACK UP TO 92-93% PT PUT ON HUMIDIFER AND OINT PLACED IN NARES WILL ASK FOR SALINE SPRAY PT ASKING FOR HER FLONASE OR AFRIN
--- NOTE | 2019-01-17 19:57 | NUR ---
shift summary: Pt resting in bed at this time with family at bedside. Pt has been tachypnic with resp rate anywhere from 18-36. Pt has periods with tripoding and short, labored breathing. Pt unable to lay back in bed and is always at 90 degrees or tripoding. Sat pt up to chair for about 30 minutes and tolerated well but then asked to go back to bed. Pt appears uncomfortable, and short of breath. Was given breathing tx and Morphine IV for air hunger. This seemed to provide some relief. Pt had 250 ml drained from her pleurex at about 1530. This seemed to provide some relief of SOB and BIox increased from 87-93 on 5L nc. No other changes at this time. Will report to night RN.
--- NOTE | 2019-01-18 01:30 | NUR ---
UPDATE IV ACCESS WAS LOST EARILER THIS SHIFT. THE ICU CHARGE NURSE CAME AND ATTEMPTED TO GAIN IV ACCESS WITH THE ULTRASOUND MACHINE WITH NO SUCCESS. DR BLANKENSHIP NOTIFIED THAT NO IV ACCESS WAS ABLE TO BE OBTAINED AT THIS TIME. WILL ATTEMPT TO HAVE A POWER GLIDE PLACED WHEN A POWER GLIDE NURSE ARRIVES IN THE AM.
[2019-01-18 04:05] LABS: Hematocrit 43.5 % (33.0-51.0); Hemoglobin 13.6 g/dL (11.5-16.0); LYMPHOCYTES ABSOLUTE AUTO 0.68 K/mm3 (0.84-5.20); LYMPHOCYTES PERCENT AUTO 2 % (21-46); MONOCYTES ABSOLUTE AUTO 0.08 K/mm3 (0.16-1.47); MONOCYTES PERCENT AUTO 0 % (4-13); Mean Corpuscular HGB 30.4 pg (26.0-34.0); Mean Corpuscular HGB Conc 31.3 g/dL (31.5-36.5); Mean Corpuscular Volume 97 fL (80-100); Platelet Count 102 K/mm3 (150-400); RDW Coefficient Variation 15.3 % (11.7-14.2); RDW Standard Deviation 54.6 fL (35.1-46.3); Red Blood Cell Count 4.48 M/mm3 (3.80-5.20); White Blood Cell Count 35.52 K/mm3 (4.00-11.30)
[2019-01-18 04:11] LABS: BASOPHILS ABSOLUTE AUTO 0.01 K/mm3 (0.00-0.23); BASOPHILS PERCENT AUTO 0 % (0-2); EOSINOPHILS PERCENT AUTO 0 % (0-6); IMMATURE GRAN PERCENT AUTO 16 % (0-1); NEUTROPHILS ABSOLUTE AUTO 29.05 K/mm3 (1.96-9.15); NEUTROPHILS PERCENT AUTO 82 % (41-73)
[2019-01-18 04:25] LABS: BAND PERCENT MAN 2 % (0-8); BASOPHILS PERCENT MAN 0 % (0-2); EOSINOPHILS PERCENT MAN 0 % (0-6); LYMPHOCYTES ABSOLUTE MAN 1.42 K/mm3 (0.84-5.20); LYMPHOCYTES PERCENT MAN 4 % (21-46); MONOCYTES PERCENT MAN 0 % (4-13); NEUTROPHILS ABSOLUTE MAN 34.09 K/mm3 (1.96-9.15); SEG NEUTROPHILS PERCENT MAN 94 % (41-73); TOTAL CELLS COUNTED 100
[2019-01-18 04:26] LABS: Alanine Aminotransfer (ALT/SGP 89 U/L (12-78); Albumin, Blood 2.3 g/dL (3.4-5.0); Albumin/Globulin Ratio 0.6 (0.8-1.8); Alk Phos 122 U/L (50-136); Anion Gap 4 mmol/L (6-16); Aspartate Aminotrans (AST/SGOT 51 U/L (12-37); Bilirubin, Total 0.7 mg/dL (0.1-1.0); Blood Urea Nitrogen 32 mg/dL (8-24); Bun/Creatinine Ratio 47.3 (12.0-20.0); CO2, Blood 31 mmol/L (21-32); Chloride, Blood 122 mmol/L (98-108); Creatinine, Blood 0.68 mg/dL (0.40-1.00); Glomerular Filtration Rate >60 (60-); Glucose, Blood 197 mg/dL (70-99); Potassium, Blood 4.8 mmol/L (3.5-5.5); Sodium, Blood 157 mmol/L (136-145); Total Protein, Blood 6.3 g/dL (6.4-8.2)
--- NOTE | 2019-01-18 05:23 | NUR ---
NA OF 157 DR BLANKENSHIP AWARE THAT PATIENT'S NA IS 157 THIS AM. DUE TO LACK OF IV ACCESS NO ORDERS WERE GIVEN AT THIS TIME.
--- NOTE | 2019-01-18 06:07 | NUR ---
SHIFT SUMMARY PATIENT RESTLESS THROUGHOUT THE NIGHT. PATIENT BACK AND FORTH BETWEEN THE BED AND THE CHAIR FREQUENTLY LAST NIGHT. FAMILY MEMBER STAYED THE NIGHT AT THE BEDSIDE. PATIENT MEDICATED FOR PAIN AND AIR HUNGER PER EMAR THROUGHOUT THE SHIFT. PATIENT WOULD HAVE EPISODES OF AGITATION WHERE SHE WOULD START TAKING OFF HER BLANKETS, TRYING TO REMOVE HER BOIX, PULLING AT HER O2 TUBING, AND TRYING TO STAND UP. PATIENT APPEARED TO BE SLIGHTLY CONFUSED AT TIMES, REORIENTED ACCORDINGLY EACH TIME. PATIENT'S VITAL SIGNS CHARTED. WILL CONTINUE TO MONITOR PATIENT AND REPORT TO ONCOMING RN.
--- NOTE | 2019-01-18 08:11 | NUR ---
RECEIVED REPORT AND ASSUMED CARE OF PATIENT. PT IS AGITATED AND UNCOMFORTABLE THIS MORNING. DR HOANG IN TO SEE PT AND FAMILY, DISCUSSED COURSE OF TREATMENT AND CARE. ORDERED SL ATIVAN FOR ANXIETY AND AGITATION. WILL ENTER ORDER AND ADMINISTER NEEDED FOR COMFORT.
--- NOTE | 2019-01-18 09:05 | NUR ---
Met with Natan, pt's , son and DIL at bedside. Tiarra is awake, but drops off to sleep frequently. Tiarra's sodium level is elevated and staff are attempting to place a power glide IV for IVF. Will plan to meet with family around noon today to discuss POLST form as pt is currently having a procedure for the power glide placement.
--- NOTE | 2019-01-18 10:39 | NUR ---
DHRUV ALVAREZ TO SEE PATIENT. HE WOULD LIKE HER D5 VOLUME INCREASED AND DR. LAZO TO BE CONSULTED. THIS NURSE WILL CALL FOR CONSULT.
--- NOTE | 2019-01-18 12:40 | NUR ---
Met with Tiarra's family this afternoon after she returned from having an x-ray. Tiarra is awake but speaks softly with her eyes closed and dozes off quickly at times. Discussed POLST form with Tiarra, Natan, and adult children. All are in agreement for DNR with limited interventions at this time. POLST form signed by Natan and spoke with Dr. Estrella to sign POLST when he is able to. Natan also requested a POLST form for himself. Assisted him in filling out POLST. He will plan to take this to a PCP when he established care. He currently doesn't have a local PCP as he states "I never get sick." AD booklets also provided for Tiarra and Natan per Natan's request. Family states Dr. Lyn was in to see Tiarra this morning and gave them an update and current POC. Family voices no requests at this time. Family states they know that time is what is needed to determin which direction Tiarra's care will need to go in the coming weeks. PC will continue to follow for symptom management and advanced care planning. Will fax POLST to medical records and OR POLST registry once Dr. Estrella has signed it.
--- NOTE | 2019-01-18 16:45 | NUR ---
DR LAZO ORDERED STAT SODIUM BLOOD RESULT AND A CALL BACK WITH RESULTS. CALLED VIOLET WITH RESULTS AND RECEIVED ORDERS TO INCREASE D5 TO 125 ML/HR. WILL FOLLOW ORDERS AND CONTINUE TO MONITOR PATIENT.
--- NOTE | 2019-01-18 19:38 | NUR ---
PT HAS BEEN ORIENTED TO FAMILY THROUGHOUT THE SHIFT, SHE HAS EPISODES OF ANXIETY, TREATED WITH ATIVAN SL DURING THE SHIFT WITH GOOD RESULT. POWERGLIDE TO UPPER RIGHT ARM RUNNING D5 AT 125/HR. O2 AT 5 LPM WITH O2 SAT >92%. PT UP TO BSC WITH 2 PERSON ASSIST. WILL CONTINUE TO MONITOR AND GIVE REPORT TO DONG RN.
[2019-01-19 04:38] LABS: BASOPHILS ABSOLUTE AUTO 0.14 K/mm3 (0.00-0.23); BASOPHILS PERCENT AUTO 1 % (0-2); Hematocrit 40.2 % (33.0-51.0); Hemoglobin 12.5 g/dL (11.5-16.0); LYMPHOCYTES ABSOLUTE AUTO 0.94 K/mm3 (0.84-5.20); LYMPHOCYTES PERCENT AUTO 5 % (21-46); MONOCYTES ABSOLUTE AUTO 0.05 K/mm3 (0.16-1.47); MONOCYTES PERCENT AUTO 0 % (4-13); Mean Corpuscular HGB Conc 31.1 g/dL (31.5-36.5); Mean Corpuscular Volume 97 fL (80-100); Mean Platelet Volume 10.6 fL (9.1-12.4); Platelet Count 71 K/mm3 (150-400); RDW Coefficient Variation 15.1 % (11.7-14.2); RDW Standard Deviation 54.2 fL (35.1-46.3); Red Blood Cell Count 4.16 M/mm3 (3.80-5.20); White Blood Cell Count 18.12 K/mm3 (4.00-11.30)
[2019-01-19 04:43] LABS: EOSINOPHILS PERCENT AUTO 0 % (0-6); IMMATURE GRAN ABSOLUTE AUTO 2.48 K/mm3 (0.00-0.10); IMMATURE GRAN PERCENT AUTO 14 % (0-1); NEUTROPHILS ABSOLUTE AUTO 14.51 K/mm3 (1.96-9.15); NEUTROPHILS PERCENT AUTO 80 % (41-73)
[2019-01-19 04:58] LABS: Alanine Aminotransfer (ALT/SGP 71 U/L (12-78); Albumin, Blood 2.3 g/dL (3.4-5.0); Albumin/Globulin Ratio 0.6 (0.8-1.8); Alk Phos 117 U/L (50-136); Anion Gap 2 mmol/L (6-16); Aspartate Aminotrans (AST/SGOT 37 U/L (12-37); Bilirubin, Total 0.6 mg/dL (0.1-1.0); Blood Urea Nitrogen 26 mg/dL (8-24); Bun/Creatinine Ratio 45.4 (12.0-20.0); CO2, Blood 33 mmol/L (21-32); Calcium, Blood 8.5 mg/dL (8.5-10.1); Chloride, Blood 116 mmol/L (98-108); Creatinine, Blood 0.57 mg/dL (0.40-1.00); Globulin, Blood 3.9 g/dL (2.2-4.0); Glomerular Filtration Rate >60 (60-); Glucose, Blood 150 mg/dL (70-99); Magnesium, Blood 2.5 mg/dL (1.6-2.4); Phosphorus, Blood 3.3 mg/dL (2.5-4.9); Potassium, Blood 4.7 mmol/L (3.5-5.5); Sodium, Blood 151 mmol/L (136-145); Total Protein, Blood 6.2 g/dL (6.4-8.2)
[2019-01-19 05:05] LABS: BAND PERCENT MAN 1 % (0-8); BASOPHILS PERCENT MAN 0 % (0-2); EOSINOPHILS PERCENT MAN 0 % (0-6); LYMPHOCYTES ABSOLUTE MAN 0.36 K/mm3 (0.84-5.20); LYMPHOCYTES PERCENT MAN 2 % (21-46); METAMYELOCYTE ABSOLUTE MAN 0.54 K/mm3 (0.00-0.00); METAMYELOCYTE PERCENT MAN 3 % (0-0); MONOCYTES ABSOLUTE MAN 0.18 K/mm3 (0.16-1.47); MONOCYTES PERCENT MAN 1 % (4-13); NEUTROPHILS ABSOLUTE MAN 17.03 K/mm3 (1.96-9.15); SEG NEUTROPHILS PERCENT MAN 93 % (41-73); TOTAL CELLS COUNTED 100
--- NOTE | 2019-01-19 07:15 | NUR ---
SHIFT SUMMARY LAST NIGHT PATIENT CONTINUED TO BE CONFUSED AND FORGETFUL AT TIMES. HOWEVER, PATIENT MENTATION APPEARS TO BE IMPROVING THIS MORNING. PATIENT ABLE TO HAVE MORE CLEAR AND ORIENTED CONVERSATIONS WITH STAFF AND EXPRESS HER NEEDS MORE CLEARLY. PATIENT MOVED FROM THE BED TO THE RECLINER SEVERAL TIMES FOR COMFORT. PATIENT REMAINED ON 4L OF O2 THROUGHOUT THE NIGHT. PATIENT GIVEN MEDICATION FOR ANXIETY PER EMAR. PATIENT APPEARED TO HAVE FEWER EPISODES AIR HUNGER LAST NIGHT. A FAMILY MEMBER WAS PRESENT IN THE ROOM THROUGHOUT THE NIGHT. REPORT GIVEN TO ONCOMING RN.
--- NOTE | 2019-01-19 07:31 | NUR ---
RECEIVED REPORT AND ASSUMED CARE OF PATIENT. SHE IS SITTING UP IN CHAIR, COVERED AND HUNCHED OVER, SHE STATES SHE IS COMFORTABLE AND IN NO PAIN AT THIS TIME. O2 IS AT 5LPM. D5 RUNNING AT 125/HR.
--- NOTE | 2019-01-19 07:34 | NUR ---
VISITS - AM DR LAZO IN TO SEE PATIENT. PLEASED WITH NA+ RESULTS, ORDERED REPEAT LAB NA+ AT 1000 AND CALL HIM WITH RESULTS BY 1100, ADDITIONALLY, CHANGED D5 TO 100ML/HR. DR HOANG IN TO SEE PATIENT. HE WILL CONTINUE MONITORING.
--- NOTE | 2019-01-19 07:44 | NUR ---
01/19/19 0744 Mindy Myers VERIFICATIONS: EDIT CHART.
--- NOTE | 2019-01-19 12:11 | NUR ---
PT TRANSPORTED BY [facility] TO [facility] FOR RADIATION TREATMENT.
--- NOTE | 2019-01-19 14:45 | NUR ---
PT ARRIVED TO UNIT FROM [facility]ER [facility]IA [facility]. SETTLED INTO CHAIR WITH FRIENDS TO VISIT. WILL CONTINUE TO MONITOR.
--- NOTE | 2019-01-19 16:01 | NUR ---
Pt visit this afternoon. Pt resting in a recliner chair and denies pain at this time. She appears moderately lethargic. When Pt drinks from her cup she coughs. Pt reports this happens often. Pt's friend Meseret present during visit. Pt gives permission for Pt to be present during visit. Pt reports feeling cold. Offered marm blanket and Pt accepts. Engaged in therapeutic conversation regarding goals of care and any concerns she may be having. Pt states not unless you can cure my cancer. Asked Pt if she recalls conversation she had with Dr Sales regarding hospice. Pt states that she does recall this conversation and is still agreeable with discussion when her Natan is present. Pt reports no other concerns at this time. Spoke with Pt's nurse Clarice and reported Pt's cough. Clarice is aware of cough. Clarice reports Pt's son eLo has concerns regarding Pt's husbands' level of understanding or the education that he able to process. Clarice reports no other concerns at this time. Attempted to contact Pt's son Leo with no success. Plan: Will meet with Pt and when is feeling better to discuss hospice option. Pt's friend Meseret will also be present to help with any gap in communication for rest of family and to assist with 's understanding. Will remain available.
--- NOTE | 2019-01-19 16:28 | NUR ---
[facility] TRANSPORT SCHEDULE: THIS RN SET UP TRANSPORT TIMES FOR PT APPOINTMENTS FOR RADIATION AT THE [facility] THROUGH THE WEEK. TU 9TH: 10:45 AGILE COACH - 15 MIN APPOINTMENT SAT 10TH: 12:15 AGILE COACH - 30 MIN APPOINTMENT [facility] 11TH: 11:45 AGILE COACH - 15 MIN APPOINTMENT SAT 12TH: 10:00 AGILE COACH - 15 MIN APPOINTMENT [facility] WILL TRY TO STAY WITH PATIENT FOR APPOINTMENT AND ROUNDTRIP HER BACK TO THE HOSPITAL SOON SHE IS FINISHED. THE ONLY DAY THAT WILL NOT WORK IS ON SAT, BUT THEY WILL NOT LET IT BE LONGER THAN 30-45 MIN AT THE [facility].
--- NOTE | 2019-01-19 17:24 | NUR ---
Attempted top see pt, but she is OOR having radiation. I will continue to attempt visit.
--- NOTE | 2019-01-19 18:36 | NUR ---
PT HAD A GOOD DAY, SHE HAS PERKED UP THIS AFTERNOON, SHE HAS BEEN TALKING ON THE TELEPHONE AND PLAYING GAMES ON HER PHONE. HER FRIEND KARYN HAS BEEN AT BEDSIDE SINCE HER RETURN FROM RADIATION. PT CONTINUES ON 5 LPM O2 VIA NC. O2 SAT >92%. D5 RUNNING AT 50- ML/HR. WILL CONTINUE TO MONITOR AND GIVE REPORT TO DONG CARO.
[2019-01-20 04:29] LABS: BASOPHILS ABSOLUTE AUTO 0.02 K/mm3 (0.00-0.23); BASOPHILS PERCENT AUTO 1 % (0-2); Hematocrit 37.6 % (33.0-51.0); Hemoglobin 11.7 g/dL (11.5-16.0); LYMPHOCYTES ABSOLUTE AUTO 0.58 K/mm3 (0.84-5.20); LYMPHOCYTES PERCENT AUTO 16 % (21-46); MONOCYTES ABSOLUTE AUTO 0.05 K/mm3 (0.16-1.47); MONOCYTES PERCENT AUTO 1 % (4-13); Mean Corpuscular HGB 29.5 pg (26.0-34.0); Mean Corpuscular HGB Conc 31.1 g/dL (31.5-36.5); Mean Corpuscular Volume 95 fL (80-100); Mean Platelet Volume 11.8 fL (9.1-12.4); RDW Coefficient Variation 14.7 % (11.7-14.2); RDW Standard Deviation 51.5 fL (35.1-46.3); Red Blood Cell Count 3.96 M/mm3 (3.80-5.20); White Blood Cell Count 3.62 K/mm3 (4.00-11.30)
[2019-01-20 04:37] LABS: EOSINOPHILS PERCENT AUTO 0 % (0-6); IMMATURE GRAN ABSOLUTE AUTO 0.29 K/mm3 (0.00-0.10); IMMATURE GRAN PERCENT AUTO 8 % (0-1); NEUTROPHILS ABSOLUTE AUTO 2.68 K/mm3 (1.96-9.15); NEUTROPHILS PERCENT AUTO 74 % (41-73)
[2019-01-20 04:38] LABS: Platelet Count 47 K/mm3 (150-400)
[2019-01-20 04:52] LABS: Albumin, Blood 2.2 g/dL (3.4-5.0); Anion Gap 3 mmol/L (6-16); Blood Urea Nitrogen 23 mg/dL (8-24); Bun/Creatinine Ratio 38.1 (12.0-20.0); CO2, Blood 32 mmol/L (21-32); CPK Creatine Kinase 80 U/L (26-193); Calcium, Blood 8.7 mg/dL (8.5-10.1); Chloride, Blood 110 mmol/L (98-108); Glomerular Filtration Rate >60 (60-); Glucose, Blood 186 mg/dL (70-99); Magnesium, Blood 2.3 mg/dL (1.6-2.4); Phosphorus, Blood 3.8 mg/dL (2.5-4.9); Potassium, Blood 4.7 mmol/L (3.5-5.5); Sodium, Blood 145 mmol/L (136-145); Uric Acid, Blood 5.3 mg/dL (2.6-6.0)
--- NOTE | 2019-01-20 04:53 | NUR ---
PCU NOC SHIFT SUMMARY PATIENT ALERT AND ORIENTED TO SELF, LOCATION AND SITUATION - CONFUSED TO DATE BY 1 MONTH. PATIENT HAS LUNG CANCER WITHE XTENSIVE METASTASIS - NEW GROWTHS OBSTRUCTING AIRWAY CAUSING PNA PER CHART. PATIENT ON 3 LPM OXYGEN WITH CLEAR TO DIM LUNG SOUNDS NOTED. VSS. HR NSR - NO EVENTS NOT. D5 RUNNING PER EMAR. R UPPER ARM POWER GLIDE WNL AND DRAWS. PATIENT HAS PLEURX DRAIN NOTED UNDER R BREAST. PATIENT HAS HUNCHED BACK AND DOES NOT MAKE EYE CONSTACT - PUPILS NOTED TO BE DIALATED. WILL CONTINUE TO MONITOR AND REPORT TO DAYSVICK RN.
[2019-01-20 05:02] LABS: BAND PERCENT MAN 5 % (0-8); BASOPHILS PERCENT MAN 0 % (0-2); EOSINOPHILS PERCENT MAN 0 % (0-6); LYMPHOCYTES PERCENT MAN 14 % (21-46); MONOCYTES PERCENT MAN 0 % (4-13); NEUTROPHILS ABSOLUTE MAN 3.11 K/mm3 (1.96-9.15); SEG NEUTROPHILS PERCENT MAN 81 % (41-73); TOTAL CELLS COUNTED 100
--- NOTE | 2019-01-20 07:45 | NUR ---
AM Assessment: Pt sitting up in chair. States that she is feeling good. VSS. LS Diminished in bases. BT positive. HR Reg. Pluerex drain to R chest wall with dressing intact. Pt denies feeling SOB at this time. Biox at low 90's at this time, on 3L HFNC. Pt is A/O x 4 at this time. Pt does seem a little confused about what happened yesterday. States that she does not remember going to the cancer center. Plan for Pt to go to cancer center today at around 1030. Pt denies other needs at this time.
--- NOTE | 2019-01-20 13:48 | NUR ---
Pt gave permission to assist in care and access chart on 01/20/2019.
--- NOTE | 2019-01-20 15:46 | NUR ---
Clinical Visit: Pt in a bright mood at this time. Lots of laughter and fun going on in the room. She has two visitors. They are making jokes. Symptom review: Pt reports 1/10 pain, 1/10 anxiety level, fatigue 5/10, 0 nausea. Reviewed medications at this time. Pt has received multiple doses of ativan yesterday, but has not needed any today. She reports that she is having a "good day." Reinforced safety and call light system. She reports she is comfortable with staff and making needs known. Will remain available.
--- NOTE | 2019-01-20 18:46 | NUR ---
Shift summary: Pt sitting up in chair finishing dinner at this time. Denies needs. Pt has done well this shift. VSS throughout shift. Pt went to Cancer Center today at around 1040 and came back at about 1140. Pt stated that she felt good but that "it wore me out more then I thought it would." IVF were discontiued per orders. No other changes at this time. Will report to night RN.
--- NOTE | 2019-01-21 03:20 | NUR ---
ASSUMED CARE OF PATIENT AT APPROXIMATELY 1910 FROM LANI [place] RN. PATIENT ALERT AND ORIENTED X4; APPEARS CONFUSED FOR MOMENTS. PATIENT WEAK; ONE ASSIST W/ FWW TO BEDSIDE COMMODE; WEAKNESS AND BACK HUNCHED. ATTENDS IN PLACE FOR INCONTINENCE; PATIENT BEGINS TO URINATE BEFORE SHE SITS ON COMMODE; BM AT SHIFT CHANGE; PATIENT REPORTS SOB W/ AMBULATION. PATIENT DENIES PAIN, NUMBNESS, TINGLING, DIZZINESS AND NAUSEA. NSR ON TELE; OXYGEN SATURATION ABOVE 90% ON 2LPM VIA HF NC. PATIENT WENT TO CANCER CENTER FOR CHEMO/RAD FOR METASTASIZED LUNG CX. PG TO DONALD S/L. PLEURX TO RIGHT SIDE. PATIENT HAD FRIEND VISITING AT SHIFT CHANGE; LEFT WITHIN A FEW HOURS. PATIENT CURRENTLY SLEEPING IN BED; CALL LIGHT IN REACH; BED IN LOWEST POSISTION; BED ALARM ON; WILL CONTINUE TO MONITOR AND ASSESS UNTIL END OF SHIFT.
[2019-01-21 04:55] LABS: Hematocrit 38.1 % (33.0-51.0); Mean Corpuscular HGB 29.9 pg (26.0-34.0); Mean Corpuscular HGB Conc 31.5 g/dL (31.5-36.5); Mean Corpuscular Volume 95 fL (80-100); Mean Platelet Volume 11.4 fL (9.1-12.4); RDW Coefficient Variation 14.3 % (11.7-14.2); RDW Standard Deviation 49.3 fL (35.1-46.3); Red Blood Cell Count 4.02 M/mm3 (3.80-5.20)
[2019-01-21 04:56] LABS: BASOPHILS PERCENT AUTO 0 % (0-2); EOSINOPHILS PERCENT AUTO 0 % (0-6); IMMATURE GRAN ABSOLUTE AUTO 0.02 K/mm3 (0.00-0.10); IMMATURE GRAN PERCENT AUTO 3 % (0-1); LYMPHOCYTES ABSOLUTE AUTO 0.34 K/mm3 (0.84-5.20); LYMPHOCYTES PERCENT AUTO 44 % (21-46); MONOCYTES ABSOLUTE AUTO 0.05 K/mm3 (0.16-1.47); MONOCYTES PERCENT AUTO 6 % (4-13); NEUTROPHILS ABSOLUTE AUTO 0.37 K/mm3 (1.96-9.15); NEUTROPHILS PERCENT AUTO 47 % (41-73)
[2019-01-21 04:57] LABS: Platelet Count 29 K/mm3 (150-400); White Blood Cell Count 0.78 K/mm3 (4.00-11.30)
[2019-01-21 05:08] LABS: Albumin, Blood 2.4 g/dL (3.4-5.0); Anion Gap 5 mmol/L (6-16); Blood Urea Nitrogen 19 mg/dL (8-24); Bun/Creatinine Ratio 29.8 (12.0-20.0); CO2, Blood 33 mmol/L (21-32); Calcium, Blood 8.9 mg/dL (8.5-10.1); Chloride, Blood 108 mmol/L (98-108); Creatinine, Blood 0.64 mg/dL (0.40-1.00); Glomerular Filtration Rate >60 (60-); Glucose, Blood 157 mg/dL (70-99); Magnesium, Blood 2.1 mg/dL (1.6-2.4); Phosphorus, Blood 3.6 mg/dL (2.5-4.9); Potassium, Blood 4.5 mmol/L (3.5-5.5); Sodium, Blood 146 mmol/L (136-145)
--- NOTE | 2019-01-21 05:45 | NUR ---
CRITICALLY LOW WBC AND PLATLET; WBC 0.78 AND PLT 29; PATIENT PLACED IN NEUTROPENIC PRECAUTIONS; CALLED DR. LAWSON; PATIENT COMPLAINED OF THRUSH; ORDERS RECIEVED. NO OTHER CHANGES TO REPORT. PATIENT SLEPT ABOUT FIVE HOURS. WILL CONTINUE TO MONITOR AND ASSESS UNTIL END OF SHIFT.
--- NOTE | 2019-01-21 06:00 | NUR ---
DR. LAZO BEDSIDE; ORDERS RECIEVED.
--- NOTE | 2019-01-21 06:15 | NUR ---
PHARMACIST SAHIL CALLED TO REPORT NO NYSTATIN; CHANGE TO CLOTRIMAZOLE LIT
--- NOTE | 2019-01-21 09:54 | NUR ---
ASSUMED CARE OF PT AT 0700. PT SITTING IN CHAIR. PT ALERT AND ORIENTED X4. PATIENT IS PLEASANT. HR REGULAR. PT IN SINUS RHYTHMN. LUNG SOUNDS CLEAR. ON 2L O2. PLEURX CHEST TUBE INPPLACE TO R SIDE AND CLAMPED. PULSES STRONG. DISCOLORATION ON FEET. DENIES NUMBESS AND TINGLING. PT AWAITING TRANSPORT TO CANCER CENTER.
--- NOTE | 2019-01-21 15:03 | NUR ---
SPiritual care visit conducted. Patient was sitting on a chair and alert when I entered patient's room. Patient admitted to trying to "get her mind around" her recent cancer diagnosis. We talked about what she understands about the medical information she has received, about ways to work through treatment and the importance of positive mental attitude. I provided pastoral retirement plan counselor, companionship and prayer. Patient responded well to all interventions and expressed gratitude for the visit
--- NOTE | 2019-01-21 18:16 | NUR ---
PT RECEIVED FINAL CHEMOTHERAPY TODAY. [facility]FM CALLED AN MET WITH PTS FRIEND ABOUT THE CARE SHE WILL NEED AT HOME. HOME O2 EVALUATION ORDERED. PT EXPECTED TO DISCHARGE 01/22. CALL LIGHT IN REACH.
[2019-01-22 04:25] LABS: Hematocrit 36.9 % (33.0-51.0); Hemoglobin 11.8 g/dL (11.5-16.0); Mean Corpuscular Volume 94 fL (80-100); Mean Platelet Volume 11.2 fL (9.1-12.4); RDW Coefficient Variation 13.9 % (11.7-14.2); RDW Standard Deviation 48.2 fL (35.1-46.3); Red Blood Cell Count 3.93 M/mm3 (3.80-5.20)
[2019-01-22 04:31] LABS: Platelet Count 17 K/mm3 (150-400); White Blood Cell Count 0.37 K/mm3 (4.00-11.30)
[2019-01-22 04:34] LABS: Albumin, Blood 2.3 g/dL (3.4-5.0); Anion Gap 7 mmol/L (6-16); Blood Urea Nitrogen 16 mg/dL (8-24); CO2, Blood 31 mmol/L (21-32); Calcium, Blood 8.8 mg/dL (8.5-10.1); Chloride, Blood 106 mmol/L (98-108); Creatinine, Blood 0.64 mg/dL (0.40-1.00); Glomerular Filtration Rate >60 (60-); Glucose, Blood 193 mg/dL (70-99); Phosphorus, Blood 3.4 mg/dL (2.5-4.9); Potassium, Blood 4.2 mmol/L (3.5-5.5); Sodium, Blood 144 mmol/L (136-145)
[2019-01-22 05:40] LABS: BASOPHILS PERCENT MAN 0 % (0-2); EOSINOPHILS PERCENT MAN 0 % (0-6); LYMPHOCYTES % ATYPICAL MANUAL 4 % (0-0); LYMPHOCYTES ABSOLUTE MAN 0.19 K/mm3 (0.84-5.20); LYMPHOCYTES PERCENT MAN 48 % (21-46); MONOCYTES ABSOLUTE MAN 0.02 K/mm3 (0.16-1.47); MONOCYTES PERCENT MAN 8 % (4-13); NEUTROPHILS ABSOLUTE MAN 0.14 K/mm3 (1.96-9.15); SEG NEUTROPHILS PERCENT MAN 40 % (41-73); TOTAL CELLS COUNTED 25
--- NOTE | 2019-01-22 06:16 | NUR ---
SHIFT SUMMARY PATIENT PLEASENT AND COOPERATIVE THROUGHOUT THE NIGHT. PATIENT APPEARED TO NAP ON AND OFF LAST NIGHT WITH NO COMPLAINTS OF PAIN OR DISCOMFORT. PATIENT UP TO THE BSC SEVERAL TIMES WITH SBA. PATIENT ALERT AND ORIENTED. IV FLUIDS RUNNING PER ORDERS. PATIENT CONTINUES TO BE ON 2L VIA N/C, CONTINUOUS BIOX IN PLACE. PATIENT CURRENTLY SITTING UP IN THE RECLINER CHAIR WATCHING TV AT THIS TIME. WILL CONTINUE TO MONITOR PATIENT AND REPORT TO ONCOMING RN.
--- NOTE | 2019-01-22 07:17 | NUR ---
NURSING PCU DAYSHIFT: Assumed care of pt at approx 0700. A/O, pleasant, cooperative w/care. General weakness noted, ambulates w/one staff assist using FWW. Denies any pain/discomfort. Skin is fragile w/scattered bruising on UE's and abd, no breakdown noted. Tele in place, NSR w/occ PVC's, no c/o CP/pressure, BP stable, trace BLE edema. L/S dim in R mid/lower lobes, clear otherwise, Pleurx present/clamped to R side, dyspnea w/exertion, respirations shallow, occ moist/CAP BLOCKER cough, O2 sat mid 90's on 2L NC, continuous bedside O2 monitoring. Abd SNT, BT+, c/o frequent loose stools, voiding w/o difficulty w/occ urgency. PG present in RUE, D5 1/2 NS infusing at 100cc/hr. Seen by oncologist and energy economist this a.m. Plan for f/u sodium level and plt administration early afternoon. RT currently at bedside for home O2 eval. Pt denies any current needs or questions regarding plan of care, discharge planned for this afternoon, cont to monitor for any changes.
[2019-01-22] MEDS ORDERED: AMLO10 PO (12:53)
[2019-01-22] MEDS ORDERED: FLUC150A PO (12:54)
[2019-01-22] MEDS ORDERED: ALBU3IS INH (12:56)
[2019-01-22] MEDS ORDERED: MELATONIN5 M1 PO (12:57)
[2019-01-22] MEDS ORDERED: NICO21TP TOP (12:58)
[2019-01-22] MEDS ORDERED: PRED20 PO (12:58)
[2019-01-22] MEDS ORDERED: NYST100000 PO (13:00)
[2019-01-22] MEDS ORDERED: PRED5EL PO (13:01)
[2019-01-22] MEDS ORDERED: PANT40 PO (13:02)
[2019-01-22] MEDS ORDERED: LEVO750 PO (13:04)
[2019-01-22] MEDS ORDERED: GI COCKTAIL PO (13:07)
--- NOTE | 2019-01-22 14:55 | NUR ---
Patient is in the discharge process and has much activity in her room. I asked patient if I could say a blessing over her on her way out. Patient stood with friend Meseret and we all held hands and prayed. Patient expressed gratitude for the prayer and stated that the prayer meant a lot to her.
--- NOTE | 2019-01-22 16:04 | NUR ---
PleurX Drain Education: Pt has right thoracic PleurX drain, placed on 01/17. It has not been drained since placement, pt denies shortness of breath at this time and is breathing easily. She is headed to her friend's house on discharge, since her is sick at home with the flu. Friend is able and willing to be trained to assist with PleurX draining and dressing changes. Set up and allowed both Tiarra and her friend to watch the accompanying DVD on managing a PleurX. Followed up with having them verbally tell me, in their words, how to drain it and change the dressing. Listened as they collected their thoughts and repeated the information they understood from the video. Then, I gave the friend an unopened and sterile bottle. I asked for a return demonstration from the friend. Tiarra will not be able to manage this drain by herself. She is obese and unable to reach the drain safely. Therefore, I focused on Tiarra's friend. Reviewed all steps with her, as she is explaining each step. Occasional correction, but she has safely demonstrated her ability to perform this task. Reviewed risk of infection, sterile field, sterile gloved hands, indication for draining, home health nursing and supplies. Reviewed s/s of infection, importance of keeping the home clean to reduce change of infection. Reviewed bottle emptying and disposal. Encouraged frequent handwashing and storing supplies safely. Provided extra sterile gloves, alcohol wipes, disposable chucks pads, tegaderm dressings, and full PleurX drain kit containing 4 bottles. Allowed time for questions. They feel prepared to manage this at home with the help of home health. Pt to discharge today.
--- NOTE | 2019-01-22 16:31 | NUR ---
NURSING PCU DISCHARGE SUMMARY: No significant changes noted t/o the shift. Seen by PMD, discharge home d/o received. Rx's faxed to [facility] per pt request. F/U appointments scheduled. Pleurx teaching completed by palliative care. HH initiated. O2 delivered and education provided. Discharge instructions discussed w/pt and friend, denied any questions at that time. Discharge completed at approx 1615, no s/s of acute distress at that time.
== END 2019-01-22 16:20 | disposition home or self-care (01) | DRG 180 ==
LOC: ER 13:46 → MEDS 13:47 → ERHOLD 13:47 → MEDS 20:59 → PCU 01-08 12:45 → MEDS 01-08 12:45 → PCU 01-17 13:31
PROVIDERS: Family Medicine; Hospitalist; Internal Medicine Hematology & Oncology; Internal Medicine Nephrology; Physician Assistant; ADMIT Internal Medicine
PROC: 0W9930Z Drainage of Right Pleural Cavity with Drainage Device, Percutaneous Approach (ICD-10-PCS; principal; 2019-01-15)
PROC: 0W993ZX Drainage of Right Pleural Cavity, Percutaneous Approach, Diagnostic (ICD-10-PCS; 2019-01-15)
PROC: 0W993ZX Drainage of Right Pleural Cavity, Percutaneous Approach, Diagnostic (ICD-10-PCS; 2019-01-15)
DX: C34.91 Malignant neoplasm of unspecified part of right bronchus or lung (principal); J96.01 Acute respiratory failure with hypoxia; J18.8 Other pneumonia, unspecified organism; C79.89 Secondary malignant neoplasm of other specified sites; J91.0 Malignant pleural effusion; N17.9 Acute kidney failure, unspecified; J44.1 Chronic obstructive pulmonary disease with (acute) exacerbation; E87.0 Hyperosmolality and hypernatremia; F17.210 Nicotine dependence, cigarettes, uncomplicated; I25.10 Atherosclerotic heart disease of native coronary artery without angina pectoris; E03.9 Hypothyroidism, unspecified; E78.5 Hyperlipidemia, unspecified; E11.22 Type 2 diabetes mellitus with diabetic chronic kidney disease; I12.9 Hypertensive chronic kidney disease with stage 1 through stage 4 chronic kidney disease, or unspecified chronic kidney disease; N18.9 Chronic kidney disease, unspecified; R13.12 Dysphagia, oropharyngeal phase
CPT/HCPCS: 32555; 36415; 36600; 38505; 71045; 71046; 71260; 74177; 74230; 76942; 80053; 80069; 82550; 82565; 82803; 82947; 83605; 83735; 84100; 84295; 84484; 84550; 85014; 85018; 85025; 85610; 85730; 86900; 86901; 87040; 88305; 88341; 88342; 92610; 92611; 93005; 93010; 94640; 94760; 94761; 94762; 96365; 96366; 96367; 96372; 96375; 96376; 97110; 97116; 97162; 97166; 97530; 99285-25; C1751; G0378; J0456; J0696; J1100; J1447; J1644; J1650; J2270; J2370; J2405; J2543; J2704; J2765; J2920; J3010; J7030; J7040; J7050; J7070; J7120; J7131; J7512; J9045; J9181; P9035; Q9967

== ENCOUNTER 2019-01-24 14:04 | Emergency (ER) | payer MEDICARE ==
[~2019-01-24] VITALS: Ht 160 cm; Wt 76.2 kg
[~2019-01-24 14:04] MED LIST changes: +ALBU3IS INH; +AMLO10 PO; +FLUC150A PO; +LEVO750 PO; +MAGIC MOUTHWASH PO; +MELATONIN5 M1 PO; +NICO21TP TOP; +NYST100000 PO; +PANT40 PO; +PRED20 PO; +PRED5EL PO
[2019-01-24] MEDS ORDERED: METF500 PO (15:05)
[2019-01-24] MEDS ORDERED: Ativan1 MG PO (16:43)
== END 2019-01-24 17:08 | disposition home or self-care (01) ==
LOC: ER 14:04
DX: R06.00 Dyspnea, unspecified (principal); R09.81 Nasal congestion; E03.9 Hypothyroidism, unspecified; E11.9 Type 2 diabetes mellitus without complications; F17.200 Nicotine dependence, unspecified, uncomplicated; Z79.82 Long term (current) use of aspirin; Z79.899 Other long term (current) drug therapy; Z79.52 Long term (current) use of systemic steroids; Z79.84 Long term (current) use of oral hypoglycemic drugs

== ENCOUNTER → 2019-01-30 | Outpatient (CLI) | payer MEDICARE ==
[~2019-01-30] MED LIST changes: +Ativan1 MG PO; +METF500 PO
== END | disposition home or self-care (01) ==
LOC: LAB SHORT 16:18 → LAB 16:18
DX: K13.70 Unspecified lesions of oral mucosa (principal)
CPT/HCPCS: 87070

== ENCOUNTER 2019-01-31 22:57 | Emergency (ER) | payer MEDICARE ==
[~2019-01-31] VITALS: Ht 160 cm; Wt 76.2 kg
== END 2019-02-01 00:57 | disposition home or self-care (01) ==
LOC: ER 22:57
DX: I95.9 Hypotension, unspecified (principal); Z87.891 Personal history of nicotine dependence; Z79.899 Other long term (current) drug therapy; Z79.52 Long term (current) use of systemic steroids; Z79.84 Long term (current) use of oral hypoglycemic drugs
CPT/HCPCS: 99283

== ENCOUNTER → 2019-02-09 | Outpatient (CLI) | payer MEDICARE ==
[2019-02-09 14:32] LABS: Creatinine Urine 82.7 mg/dL (27.00-270.00); Protein, Urine Quantitative 21.4 mg/dL (0.0-11.9)
[2019-02-09 14:35] LABS: Microalbumin, Urine Quant. 11.2 mg/L (0.000-20.000)
== END | disposition home or self-care (01) ==
LOC: LAB 13:10 → LAB SHORT 13:10
PROVIDERS: Internal Medicine Nephrology
DX: N18.2 Chronic kidney disease, stage 2 (mild) (principal); D63.1 Anemia in chronic kidney disease; N25.81 Secondary hyperparathyroidism of renal origin; E55.9 Vitamin D deficiency, unspecified; E78.00 Pure hypercholesterolemia, unspecified; R76.9 Abnormal immunological finding in serum, unspecified; R94.5 Abnormal results of liver function studies; R94.6 Abnormal results of thyroid function studies
CPT/HCPCS: 81050; 82043; 82570; 84156

== ENCOUNTER 2019-03-15 06:39 | Inpatient (IN) | payer MEDICARE ==
[~2019-03-15] VITALS: Ht 160 cm; Wt 75.9 kg
[~2019-03-15 06:39] MED LIST changes: +MELA3 PO; -MELATONIN5 M1 PO
[2019-03-15 07:34] LABS: BASOPHILS ABSOLUTE AUTO 0.11 K/mm3 (0.00-0.23); BASOPHILS PERCENT AUTO 1 % (0-2); EOSINOPHILS ABSOLUTE AUTO 0.02 K/mm3 (0.00-0.68); EOSINOPHILS PERCENT AUTO 0 % (0-6); Hematocrit 29.4 % (33.0-51.0); Hemoglobin 9.1 g/dL (11.5-16.0); IMMATURE GRAN ABSOLUTE AUTO 0.93 K/mm3 (0.00-0.10); IMMATURE GRAN PERCENT AUTO 5 % (0-1); LYMPHOCYTES ABSOLUTE AUTO 1.24 K/mm3 (0.84-5.20); LYMPHOCYTES PERCENT AUTO 7 % (21-46); MONOCYTES ABSOLUTE AUTO 1.56 K/mm3 (0.16-1.47); MONOCYTES PERCENT AUTO 8 % (4-13); Mean Corpuscular HGB 30.6 pg (26.0-34.0); Mean Corpuscular Volume 99 fL (80-100); Mean Platelet Volume 9.6 fL (9.1-12.4); NEUTROPHILS ABSOLUTE AUTO 14.89 K/mm3 (1.96-9.15); NEUTROPHILS PERCENT AUTO 79 % (41-73); NRBC ABSOLUTE 0.07 K/mm3 (0.00-0.02); NRBC Auto 0.4 /100 WBC (0.0-0.2); Platelet Count 288 K/mm3 (150-400); RDW Coefficient Variation 21.5 % (11.7-14.2); Red Blood Cell Count 2.97 M/mm3 (3.80-5.20); White Blood Cell Count 18.75 K/mm3 (4.00-11.30)
[2019-03-15 07:52] LABS: Alanine Aminotransfer (ALT/SGP 21 U/L (12-78); Albumin, Blood 2.4 g/dL (3.4-5.0); Albumin/Globulin Ratio 0.5 (0.8-1.8); Alk Phos 129 U/L (50-136); Anion Gap 9 mmol/L (6-16); Aspartate Aminotrans (AST/SGOT 40 U/L (12-37); Bilirubin, Total 0.5 mg/dL (0.1-1.0); Blood Urea Nitrogen 10 mg/dL (8-24); Bun/Creatinine Ratio 17.7 (12.0-20.0); CO2, Blood 30 mmol/L (21-32); Calcium, Blood 8.9 mg/dL (8.5-10.1); Chloride, Blood 98 mmol/L (98-108); Creatinine, Blood 0.57 mg/dL (0.40-1.00); Globulin, Blood 4.5 g/dL (2.2-4.0); Glomerular Filtration Rate >60 (60-); Glucose, Blood 176 mg/dL (70-99); Potassium, Blood 3.8 mmol/L (3.5-5.5); Sodium, Blood 137 mmol/L (136-145); Total Protein, Blood 6.9 g/dL (6.4-8.2)
[2019-03-15 09:29] LABS: PCO2 Arterial 48.4 mmHg (35-45); PO2 Arterial 58.4 mmHg (80-100); pH Blood Arterial 7.41 (7.35-7.45)
[2019-03-15] MEDS ORDERED: Nexium40 MG PO (13:33)
[2019-03-15] MEDS ORDERED: Zantac150 MG PO (14:14)
[2019-03-15] MEDS ORDERED: MIRT15 PO (14:15)
--- NOTE | 2019-03-15 14:37 | NUR ---
PATIENT ARRIVES FROM [facility] VIA STRETCHER. ON OXYMIZER, BUT TAKES OFF OFTEN W/SATS DROPPING. EXERTIONAL DYSPNEA. HX LUNG CANCER DX LATE 12/2018. LAST CHEMO LAST SATURDAY. CALLED ABOUT INCREASE IN LACTIC ACID AND NO NEW ORDERS. ON CONTINUOUS SAT MONITOR. DNR. WCTM.
[2019-03-15] MEDS ORDERED: OXYC5 PO (16:34)
--- NOTE | 2019-03-15 18:10 | NUR ---
ALERT. ORIENTED. MOIST SOUNDING COUGH. COUGH MEDS SEEM TO HELP.REVIEW HOW TO USE INCENTIVE SPIROMETER. POOR APPETITE WHICH PATIENT STS SHE HAS HAD FOR ABOUT A WEEK. NEXT CHEMO 03/23. PLEASANT. COOPERATIVE. AWARE TO USE CALL LIGHT FOR ASSIST TO BSC. SATS MID 90'S. [facility].
--- NOTE | 2019-03-16 03:46 | NUR ---
0913 PT LEFT FLOOR TO GO SMOKE OUTSIDE. I STRONGLY ADVISED PT NOT TO DO SO HE IS ON TELE AND HAS HAD CHEST WITH NEED OF NITRO. EXPLAINED POSSIBLE CONSEQUENCES OF NOT BEING MONITORED INCLUDING . ALSO CONSULTED WITH JAVA CONSULTANT. HAD PT SIGN AMA FORM. HE IS FULLY AAO AND ABLE TO MAKE DESCISIONS. PT SIGNED FORM AND WALKED OUT TO SMOKE.
--- NOTE | 2019-03-16 05:26 | NUR ---
NOC SHIFT SUMMARY PT HAS BEEN PLEASANT AND COOPERATIVE WITH CARE THIS NIGHT. AAOX4. ON OXYMIZER AT 10L/MIN. HER SATS ARE CURRENTLY 95% PER PULSE OX ON FINGER. SHE HAS HAD EPISODES OF ANXIETY, BACK PAIN, AND SOB WHICH HAVE BEEN TREATED PER EMAR TO GOOD EFFECT. RT HAS GIVEN BREATHING TREATMENTS THIS NIGHT FOR SOB. ENCOURAGED TO USE INCENTIVE SPIRAMETER AND EDUCATED ON USE. SHE IS CURRENTLY SLEEPING LIGHTLY AND APPEARS IN NO ACUTE DISTRESS. WILL CONTINUE TO MONITOR. VSS.
--- NOTE | 2019-03-16 12:46 | NUR ---
SHE DID NOT EAT ANY BREAKFAST BUT IS TAKING A LITTLE LUNCH.HER OXIMIZER HAS BEEN CHANGED TO A HIGH FLOW NASAL CANNULA. 10L. CONTINUOUS BIOX IS ON. NO ALARMS SO FAR TODAY. SHE TOLD ME THIS MORNING SHE IS TOO WEAK TODAY TO GET UP TO A BSC OR EVEN GET ON AND OFF A BEDPAN. SO FAR SHE REFUSED THE [employer] WEB[employer]HERE PORTAL DEVELOPER TO CHECK HER ATTENDS. WILL NEED TO CHANGE HER SOON, ASSUMING SHE IS WET. SCD'S ON. I.S IN REACH BUT SHE HAS NOT WANTED TO USE THEM. WILL ENCOURAGE. ? AT BEDSIDE. ROUNDED.
--- NOTE | 2019-03-16 13:51 | NUR ---
SHE HAS BEEN CHANGED FOR A VERY LARGE AMT OF INCONTINENT URINE. SKIN CLEANED. BED CHANGED. SHE AGREED TO SIT UP IN THE CHAIR FOR A WHILE. SHE HAD MORE SOB WITH THE ACTIVITY. HER LEGS ARE ALSO VERY WEAK. BIOX MACHINE RESUMED WHEN SETTLED IN CHAIR. SAT WNL. STILL AT BEDSIDE.
--- NOTE | 2019-03-16 16:28 | NUR ---
SHE IS BACK IN BED AFTER SITTING UP FOR ABOUT 2 HRS. HER HAS BEEN AT THE BEDSIDE MOST OF THE DAY. SHE HAS RECEIVED OXYCODONE X2. SHE HAD LESS PAIN RELIEF THE SECOND TIME BUT THE FIRST DOSE WAS FOLLOWED LATER BY ANGEL FOR SOB AND ANXIETY. SHE HAS USED HER FLUTTER VALVE AND HER I.S. THIS AFTERNOON. HER INSPIRATION IS SMALL. CONTINUOUS BIOX ON.O2 IS 9L HIGH FLOW CANNULA. SHE DID NOT LIKE THE BULKY OXIMIZER.ANTIBIOTICS WERE COMPLETELY CHANGED TODAY.RAC IV SITE LEAKED SO A NEW LFA IV WAS STARTED BY THE CHARGE NURSE.
--- NOTE | 2019-03-16 21:23 | NUR ---
VIEW SCORE REMAINS 3, PT IS TACYPNEIC AT BASELINE AND HAS BEEN ON 9L HIGH FLOW O2. HR TACHY STILL BUT PT REPORTS ANXIETY W/ATIVAN 1MG IV RECIEVED PRN. WILL MONITOR FOR EFFECT.
--- NOTE | 2019-03-16 23:07 | NUR ---
PT C/O SOB, BX TX RECIEVED FROM RT BUT THEN PT BEGAN COUGHING FIT THAT WOULDN'T SUBSIDE. GUIFENESON W/CODEINE 15ML PO PRN RECIEVED ALONG W/OXYCODONE 5MG PO PRN FOR LOWER BACK AND TAILBONE PAIN. WILL MONITOR FOR EFFECT. SPO2 WNL ON 9L HIGH FLOW O2.
--- NOTE | 2019-03-17 00:36 | NUR ---
PT DESATING ON 10L HIGH FLOW O2 W/CONT'D SOB AT REST NOTED. SHE CONT'S TO COUGH INTERMITTENTLY POST PRN COUGH MED. SHE REPORTS PAIN IMPROVED BUT PT WAS REPOSITIONED UPRIGHT IN BED AND O2 TURNED UP TO 12L HIGH FLOW TO MAINTAIN SPO2>90%. WHEEZES STILL HEARD AND RT CONSULTED BUT PREVIOUS PRN TX SEEMED TO PRECIPITATE COUGHING FIT THEN DESATING FROM WHICH SHE STILL HASN'T ENTIRELY RECOVERED. PLAN TO MONITOR CLOSELY AND ALERT RT IF O2 NEEDS CONTINUE TO INCREASE. RT STATED PT MAY NEED NONREBREATHER IF MORE THEN 12L O2 IS REQUIRED OR HEATED HIGH FLOW O2 IF REBREATHER ISN'T TOLERATED D/T ANXIETY. WCTM FOR CHANGES/WORSENING AND ALERT MD NEEDED.
[2019-03-17 05:12] LABS: Hematocrit 31.3 % (33.0-51.0); Hemoglobin 9.4 g/dL (11.5-16.0); Mean Corpuscular HGB 30.2 pg (26.0-34.0); Mean Corpuscular Volume 101 fL (80-100); Mean Platelet Volume 9.4 fL (9.1-12.4); NRBC ABSOLUTE 0.11 K/mm3 (0.00-0.02); NRBC Auto 0.5 /100 WBC (0.0-0.2); Platelet Count 354 K/mm3 (150-400); RDW Coefficient Variation 21.4 % (11.7-14.2); RDW Standard Deviation 75.6 fL (35.1-46.3); Red Blood Cell Count 3.11 M/mm3 (3.80-5.20); White Blood Cell Count 20.61 K/mm3 (4.00-11.30)
[2019-03-17 05:30] LABS: Alanine Aminotransfer (ALT/SGP 17 U/L (12-78); Albumin, Blood 2.2 g/dL (3.4-5.0); Albumin/Globulin Ratio 0.5 (0.8-1.8); Alk Phos 122 U/L (50-136); Anion Gap 7 mmol/L (6-16); Aspartate Aminotrans (AST/SGOT 43 U/L (12-37); Bilirubin, Total 0.7 mg/dL (0.1-1.0); Blood Urea Nitrogen 13 mg/dL (8-24); Bun/Creatinine Ratio 21.7 (12.0-20.0); CO2, Blood 32 mmol/L (21-32); Calcium, Blood 9.1 mg/dL (8.5-10.1); Chloride, Blood 98 mmol/L (98-108); Globulin, Blood 4.6 g/dL (2.2-4.0); Glomerular Filtration Rate >60 (60-); Glucose, Blood 133 mg/dL (70-99); Potassium, Blood 3.6 mmol/L (3.5-5.5); Sodium, Blood 137 mmol/L (136-145); Total Protein, Blood 6.8 g/dL (6.4-8.2)
[2019-03-17 05:45] LABS: BAND PERCENT MAN 1 % (0-8); BASOPHILS PERCENT MAN 0 % (0-2); EOSINOPHILS PERCENT MAN 0 % (0-6); LYMPHOCYTES ABSOLUTE MAN 1.64 K/mm3 (0.84-5.20); LYMPHOCYTES PERCENT MAN 8 % (21-46); METAMYELOCYTE ABSOLUTE MAN 0.61 K/mm3 (0.00-0.00); METAMYELOCYTE PERCENT MAN 3 % (0-0); MONOCYTES ABSOLUTE MAN 0.82 K/mm3 (0.16-1.47); MONOCYTES PERCENT MAN 4 % (4-13); MYELOCYTE PERCENT MAN 1 % (0-0); NEUTROPHILS ABSOLUTE MAN 17.31 K/mm3 (1.96-9.15); SEG NEUTROPHILS PERCENT MAN 83 % (41-73); TOTAL CELLS COUNTED 100
--- NOTE | 2019-03-17 06:33 | NUR ---
SUMMARY: A/OX4, SPECIFIES NEEDS AND CALLS APPROPRIATELY. PT'S O2 REQUIREMENTS HAVE INCREASED T/O NOCTE AND SHE IS NOW ON 12L HIGH FLOW HUMIDIFIED O2 TO MAINTAIN SPO2>90%. SHE HAS PERSISTENTLY BEEN TACHYPNEIC W/RR 16-2O RESPS/MIN AND TACHYCARDIC W/HR 105-120'S BPM. HR AND BP WORSE WHEN RESPS ARE LABORED AND ANXIETY IS HIGH. CONT BIOX INTACT AND PT'S WATCHES IT CLOSELY. SHE FEELS RESP SYMPTOMS ALWAYS GET WORSE AT NIGHT AND REFERS TO IT "SUNDOWNERS". PT RECIEVED PRN BX TX BUT THAT SEEMED TO WORSEN COUGH. SHE HAS DIFFICULTY CLEARING ORAL SECRETIONS BUT EVENTUALLY BRINGS STUFF UP. I/S AND FLUTTER WERE ENCOURAGED. WHEEZES PERSIST AND LS TO R.LUNG LOBE ARE MORE DIMINISHED. SOB PERSISTS AT REST ANDN WORSENS W/EXERTION. IV ABX RECIEVED. PLEUREX DRAIN W/DX PRESENT TO R.SIDE. SHE ALSO WAS GIVEN OXYCODONE PRN X2 DOSES, ATIVAN 1MG IV X2 DOSES AND GUAFENISON W/CODEINE PRN X2 DOSES FOR BACK AND TAILBONE PAIN, ANXIETY AND COUGH. THEY WERE ALL TEMPORARILY EFFECTIVE. PT TAKES PILLS IN APPLESAUCE AND ATTENDS WERE CHANGED FOR URINARY INCONTINENCE. SHE SLEEPS UPRIGHT AND WAS ASSISTED W/REPOSITIONING. WEAKNESS PERSISTS AND SOB MAKES MOBILITY CHALLENGING. NO ACUTE CHANGES, VSS/AFEBRILE. WCTM/REPORT TO DAY RN.
[2019-03-17 08:27] LABS: Vancomycin, Trough 19.3 ug/mL (5.0-10.0)
--- NOTE | 2019-03-17 13:47 | NUR ---
WE HELPED HER UP TO THE CHAIR BEFORE LUNCH. SHE TOOK SOME LIQUIDS AT LUNCH BUT NO FOOD. HER HAS BEEN AT HER SIDE MOST OF THE DAY. ADDED THE STEROID AND BROUGHT BACK ZOSYN. BOTH HAVE BEEN GIVEN. SHE IS STRUGGLING A LITTLE MORE TODAY TO BREATHE THAN YESTERDAY. HE FEELS HER SLEEPINESS IS CO2 RETENTION.
--- NOTE | 2019-03-17 17:36 | NUR ---
SHE HAS BEEN SITTING UP IN A CHAIR FOR HOURS BECAUSE SHE BREATHES BETTER THAT WAY, REQUIRES A LITTLE LESS O2, AND IS LESS ANXIOUS. SHE HAS NOT C/O PAIN TODAY TO ME OR THE DOCTOR. SHE RECEIVED ATIVAN X1 THIS MORNING. O2 FLOW IS DOWN TO 10L FROM 12. DR. DUBOSE RECENTLY CHECKED IN ON HER AGAIN AND HAS ORDERED BIPAP AND AN AM ABG. HER LEFT A COUPLE OF HRS AGO. SHE SLEEPS OFF AND ON WITH HER HEAD HANGING DOWN WHERE HER CHIN TOUCHES HER CHEST.THAT IS HER POSITION OF PREFERENCE. ATTENDS CHANGED FOR LARGE AMTS OF URINE TODAY. NO BM NOTED.
--- NOTE | 2019-03-17 18:19 | NUR ---
HER LFA IV IS NOW PAINFUL WITH VEIN HARDENING. DISCUSSED POWER GLIDE WITH PROCEDURE NURSE THIS SITE IS ONLY 24 HRS OLD. ZOSYN DOSE WILL HAVE TO WAIT UNTIL SHE HAS NEW ACCESS.
--- NOTE | 2019-03-18 07:32 | NUR ---
Rn summary: Patient is alert and oriented. She has dyspnea with any activity or movement. Pt repositioned frequently to facilitate breathing and comfort. Pt has mepilex to coccyx, new one applied. Pt has been medicated for pain x2 with oxy 5mg and anxiety with ativan 1mg. Pt has rested fairly well. Lungs diminished on the Right, Expiratory wheezes on the left. O2 at 11 via high flow at beginning of shift, it was increased to 12 liters and has been titrated down to 9 liters with sats at 92% while sleeping. Power glide to left upper arm. Call light in reach. Report to day shift RN.
[2019-03-18 08:18] LABS: Hematocrit 30.5 % (33.0-51.0); Hemoglobin 9.1 g/dL (11.5-16.0); Mean Corpuscular HGB 29.9 pg (26.0-34.0); Mean Corpuscular HGB Conc 29.8 g/dL (31.5-36.5); Mean Corpuscular Volume 100 fL (80-100); Mean Platelet Volume 9.1 fL (9.1-12.4); NRBC ABSOLUTE 0.06 K/mm3 (0.00-0.02); NRBC Auto 0.3 /100 WBC (0.0-0.2); Platelet Count 385 K/mm3 (150-400); RDW Coefficient Variation 21.2 % (11.7-14.2); RDW Standard Deviation 74.5 fL (35.1-46.3); Red Blood Cell Count 3.04 M/mm3 (3.80-5.20); White Blood Cell Count 19.49 K/mm3 (4.00-11.30)
[2019-03-18 08:41] LABS: BAND PERCENT MAN 2 % (0-8); BASOPHILS PERCENT MAN 0 % (0-2); EOSINOPHILS PERCENT MAN 0 % (0-6); LYMPHOCYTES ABSOLUTE MAN 0.58 K/mm3 (0.84-5.20); LYMPHOCYTES PERCENT MAN 3 % (21-46); METAMYELOCYTE ABSOLUTE MAN 0.97 K/mm3 (0.00-0.00); METAMYELOCYTE PERCENT MAN 5 % (0-0); MONOCYTES PERCENT MAN 0 % (4-13); MYELOCYTE ABSOLUTE MAN 0.19 K/mm3 (0.00-0.00); MYELOCYTE PERCENT MAN 1 % (0-0); NEUTROPHILS ABSOLUTE MAN 17.73 K/mm3 (1.96-9.15); SEG NEUTROPHILS PERCENT MAN 89 % (41-73); TOTAL CELLS COUNTED 100
[2019-03-18 08:45] LABS: Alanine Aminotransfer (ALT/SGP 16 U/L (12-78); Albumin, Blood 2.1 g/dL (3.4-5.0); Albumin/Globulin Ratio 0.5 (0.8-1.8); Alk Phos 107 U/L (50-136); Anion Gap 8 mmol/L (6-16); Aspartate Aminotrans (AST/SGOT 46 U/L (12-37); Bilirubin, Total 0.4 mg/dL (0.1-1.0); Blood Urea Nitrogen 19 mg/dL (8-24); Bun/Creatinine Ratio 27.1 (12.0-20.0); CO2, Blood 31 mmol/L (21-32); Calcium, Blood 8.9 mg/dL (8.5-10.1); Chloride, Blood 98 mmol/L (98-108); Globulin, Blood 4.6 g/dL (2.2-4.0); Glomerular Filtration Rate >60 (60-); Glucose, Blood 150 mg/dL (70-99); Potassium, Blood 3.3 mmol/L (3.5-5.5); Sodium, Blood 137 mmol/L (136-145); Total Protein, Blood 6.7 g/dL (6.4-8.2)
[2019-03-18 08:57] LABS: Vancomycin, Trough 24.5 ug/mL (5.0-10.0)
--- NOTE | 2019-03-18 09:00 | NUR ---
SPOKE WITH VIKY, PALLIATIVE CARE RN. REQUESTED A CONSULT WITH FAMILY AND PATIENT CONCERNING NEW SECONDARY INFECTION AND COMPLETE LUNG WHITEOUT WELL INCREASED SOB AND OXYGEN DEAMNDS. VIKY RESPONDED THAT HE WOULD SEE PATIENT TODAY.
[2019-03-18 10:17] LABS: PCO2 Arterial 55.2 mmHg (35-45); PO2 Arterial 62.3 mmHg (80-100)
--- NOTE | 2019-03-18 10:19 | NUR ---
PT TRANSPORTED TO CT SCAN VIA STRETCHER AND IN NO ACUTE DISTRESS.
--- NOTE | 2019-03-18 13:28 | NUR ---
INCREASED SOB ADN C/O AIR HUNGER; 02 SATS 89-91 ON 15L HIGH FLOW NC. PT MOVED TO CHAIR TO ASSIST WITH MORE EFFECTIVE BREATHING PT REPORTED SLIGHT IMPROVEMENT. SPOUSE AT BESIDE. MORPHINE NEB IN PROGRESS; ALL ABOVE REPORTED TO DR. DUBOSE. NO NEW ORDERS RECEIVED.
--- NOTE | 2019-03-18 14:41 | NUR ---
Spiritual care visit conducted.atient is sitting up in bed and alert with , Natna, bedside. Natan is tearful when I enter the room. They tell me that patient is not doing well and that even with chemotherapy and radiation cancer continues to spread. Patient has decent air stats but struggles to breath and pulls of her mask for her breathing treatment and says, "I can't breath!" RN comes quickly and gets patient out of bed and sits her on a chair and patient leans over a table. Patient relaxes and breaths easier. I talk with patient and Natan about the dying process, about nico and about resting in the moments we have. I listen empathically, reinforce helpful attitudes and practices, provide pastoral counselor manager and provide prayer. Patient and Natan respond well and show sings of rediced stress. I will contue to remain available to patient and family.
--- NOTE | 2019-03-18 15:12 | NUR ---
Clinical Visit: Pt was placed on comfort care today. She is very symptomatic with dyspnea. Reviewed chart, notes, medications. She does have current comfort medications ordered. She is getting a morphine updraft for this. Pulse ox is still connected, pt states she would like this to stay on. This should be discontinued very soon, as she is likely to pass away fairly quickly and having that measure in place causes families some anxiety when it alarms. Will recommend this to nursing. Reviewed with meter/relay technicianNisa. She states the patient has shared with her that she doesn't want to feel as though she is sufficating. Roxanol and morphine updrafts will be good for this and she has both ordered. Ativan as needed for anxiety. Frequent assessments for symptoms recommended. Will follow up with pt after she is done with her updraft. Assessment for pain, anxiety, dyspnea.
--- NOTE | 2019-03-18 16:15 | NUR ---
Clinical Visit: Visited with patient and . is not coping well, has red rimmed eyes and appears tearful. He is avoiding eye contact with me. Tiarra is still appears to be struggling for air after her morphine updraft. She would like oral morphine and a "small dose" of ativan for her anxiety. They tell me that daughter will be here soon, she left from [place] not that long ago. Pt's son is coming from [place] and will be here about 11pm tonight. Pt requests low doses of medication until then. She would like her syptoms managed without being sedated for now. Instructed that small doses will be given, with the option of requesting more medication if needed. She verbalizes understanding. Palliative will follow for symptom management. Vp Public Relations is following also. Will remain available.
--- NOTE | 2019-03-18 16:43 | NUR ---
Initial Spiritual Care visit: Mrs. Santoro was sitting in chair at bedside and appeared to be working hard to breathe. she tells me she had just been told she is actively dying. When asked about her concerns, she stated, "I am tired of feeling like I am suffocating." It was difficult for her to hold conversation. She asked me to pray for her. Spouse, Natan, was present and pacing room. He was quite tearful, but clearly did not want to be spoken to or comforted. He seemed to be struggling to hold it together. He raised his hand to stop me from speaking directly to him. Ed Villalobos, Paliiative Care, of pt's concerns. She immediately addressed this. I will contiune to monitor pt and family for emotional/spiritual needs.
--- NOTE | 2019-03-18 18:21 | NUR ---
PLEUREX DRAIN WITH ONLY SCANT SERROUS DRAINAGE IN TUBING. SITE WNL. REPOSITION FOR COMFORT. RESPIRATORY CALLED TO BEDSIDE. O2 SATS 87-91 ON 15 LITER HIGH FLOW O2.
--- NOTE | 2019-03-18 18:23 | NUR ---
SHIFT SUMMARY TRANSITIONED TO COMFORT CARE TODAY DUE TO ADVANCED DISEASE. DECREASED APPETITE. STATES "I'M AFRAID I'LL ASPIRATE". SPOUSE AT BEDSIDE THROUGHOUT DAY. HEAD OF BED UPRIGHT 90 DEGREES FOR PATIENT COMFORT. INCONTINENT. PLEUREX DRAIN IN PLACE RIGHT SIDED SITE WNL. OX3.
--- NOTE | 2019-03-18 19:48 | NUR ---
called to drain pt for comfort. confirmed orders. pt has coarse cough and diaphramatic breathing she is taking prn meds but wants to be as interactive as possible waiting for son to arrive. drained 40ML of light serous fluid. Very slow to drain waited with movement and cough to see if flow would increase. No change noted. strerile cap placed. pt wants to sit straight up and hang head to right. Gave her a neck pillow and positioned elbows higher. advised family short breaks are good to reduce fatigue. Several visitors in room pt has two fans. advised may need to encourge slight increase in prn meds of to labored.
--- NOTE | 2019-03-18 22:16 | NUR ---
PATIENT SLEEPING. FOUR FAMILY/FRIENDS PRESENT.
--- NOTE | 2019-03-19 02:31 | NUR ---
PATIENT AND THREE FAMILY MEMBERS STILL AWAKE. FAMILY CONVERSATION.
--- NOTE | 2019-03-19 03:59 | NUR ---
SHIFT SUMMARY PATIENT ON COMFORT CARE. AXO X3 AND BEDFAST. Q2 TURNS. POWERGLIDE BARRERA KVO. ATIVAN IV 1 MG GIVEN FOR ANXIETY. ROXANOL 15 MG GIVEN FOR AIR HUNGER/PAIN. SCHEDULE SOLU-MEDROL. ON 15 L HIGH FLOW O2. PLUEREX DRAIN RS WNL. ORAL CARE PROVIDED. FAMILY/PATIENT REQUEST BREATHING TX AND RT SUGGESTED MORPHINE BREATHING TX, GIVEN PER EMAR. FAMILY PRESENT T/O SHIFT. PATIENT AND FAMILY AWAKE T/O SHIFT. CALL LIGHT IN REACH. BED IN LOWEST POSITION. WILL CONTINUE TO MONITOR UNTIL DAY SHIFT NURSE ASSUMES CARE.
--- NOTE | 2019-03-19 11:51 | NUR ---
Spirual care visit conducted. Patient is struggling to breath and so I speak to RN who goes and gets meds. Patient's Spouse, Natan, friend, son Leo and his Agatha, and daughter Tiarra are all present in the room and are very attentive and supportive. They are all dealing with anticipatory grief appropriately and create an upbeat environment (as much as possible). I listen empathically, provide emotional support and provide prayer. Patient and family respond well. I will continue to remain available to patient and family.
--- NOTE | 2019-03-19 12:05 | NUR ---
Visited with Tiarra's family, refilled comfort care beverages per pt's family request. Lots of family in room at this time. Pt being medicated per EMAR for symptoms. Family voices no concerns at this time. Turned pt's TV on to the music channel per her request. PC will continue to follow and assist with symptom management and family support.
--- NOTE | 2019-03-19 13:05 | NUR ---
PT SLEEPING, SNORING. FAMILY ATTENTIVE AND AT BEDSIDE.
--- NOTE | 2019-03-19 13:07 | NUR ---
MULTIPLE FAMILY MEMBERS AT BEDSIDE. PT INTERMITTENTLY SLEEPING AND C/O SOB. SKIN PALE. POSITIONED OFF OF BONY PROMINENCES. SLEEPING/SNORING AT THIS TIME APPEARS IN NO ACUTE DISTRESS.
--- NOTE | 2019-03-19 13:35 | NUR ---
Nursing called PC to room to help explain change in breathing pattern to pt's family. Went to room and discussed normal EOL changes that pt may exhibit. Pt is asleep, slight moist rattle heard which is troublesome to pt's . Offered comfort care booklet and discussed EOL changes. Answered family members questions. Pt's requesting scopolamine patch to be placed. Explained to him that the medication in the patch will take some time to get into pt's system and that we can use atropine gtts if needed. He voiced understanding. Emotional support given to pt's family. Pt is sleeping and appears to be comfortable at this time.
--- NOTE | 2019-03-19 14:46 | NUR ---
PT REPOSITIONED FOR COMFORT. HEEL PROTECTORS APPLIED BILATERALLY. SPOUSE, FAMILY AND FRIENDS AT BEDSIDE. RR 8-10 WITH PERIODS OF APNEA. RESPONDING TO QUESTIONS WITH ONE WORD ANSWERS AT TIME GARBLED. NO URINE OUTPUT NOTED SINCE 9A.M.
--- NOTE | 2019-03-19 16:33 | NUR ---
PT REPOSITIONED HOB UP 90 DEGREES UPPER EXT SUPPORTED BY PILLOWS FOR COMFORT AND AT PATIENT REQUEST. MULTIPLE FAMILY MEMBERS IN ROOM ATTENTIVE TO PATIENT.
--- NOTE | 2019-03-19 17:39 | NUR ---
SHIFT SUMMARY COMFORT CARE; HOB UP 90 DEGREES TO AID WITH BREATHING. HUMIDIFIED 02 @15L. MULTIPLE FAMILY AND FRIENDS AT BEDSIDE. PATIENT OX3 SOMNOLENT. MEDICATED FOR SECRETIONS. NO PO INTAKE TODAY; DECREASED URINE OUTPUT.
--- NOTE | 2019-03-19 18:51 | NUR ---
ABLE TO ANSWER YES/NO QUESTIONS. REPOSITIONED FOR COMFORT.
--- NOTE | 2019-03-20 04:48 | NUR ---
SHIFT SUMMARY: 68 Y/O FEMALE COMFORT CARE PATIENT. PT IS NON RESPONSIVE AND REQUIRED TURNING Q2H BY STAFF WITH HOB AT [facility]. PT GIVEN ROXANOL 20MG PO EVERY 2 HOURS FOR AIR HUNGER. PTS SPOUSE AND TWO FAMILY MEMBERS SPENT NIGHT AT SIDE AND ARE VERY SUPPORTIVE. PT HAD NO INTAKE AND SCANT WET ATTENDS DIAPERS X 1 THIS SHIFT. PTS BED LOW POSITION, CALL LIGHT AT SIDE.
--- NOTE | 2019-03-20 07:38 | NUR ---
0700 PT CONTINUES TO CHEYNES-STOKE AT 4-8 BREATHS/MINUTE. FAMILY AT SIDE AND SUPPORTIVE.
--- NOTE | 2019-03-20 09:16 | NUR ---
VAHE AT 08:20. FAMILY WAS AT THE BEDSIDE ALL THROUGHOUT EMORNING. FAMILY ALERTED R THAT THE PATIENT HAD . THE HEAD OF THE BED WAS LOWERED. FAMILY WAS GIVEN TIME WITH THE PATIENT AND LEFT THE FACILITY AT 0900. HOME HAS BEEN CONTACTED.
== END 2019-03-20 08:20 | DRG 871 ==
LOC: ER 06:39 → MEDS 10:08
PROVIDERS: Emergency Medicine; Family Medicine; Pharmacist; ADMIT Internal Medicine
DX: A41.9 Sepsis, unspecified organism (principal); J18.9 Pneumonia, unspecified organism; E43 Unspecified severe protein-calorie malnutrition; J96.21 Acute and chronic respiratory failure with hypoxia; J96.22 Acute and chronic respiratory failure with hypercapnia; C34.91 Malignant neoplasm of unspecified part of right bronchus or lung; C78.89 Secondary malignant neoplasm of other digestive organs; R65.20 Severe sepsis without septic shock; C78.6 Secondary malignant neoplasm of retroperitoneum and peritoneum; C79.72 Secondary malignant neoplasm of left adrenal gland; J98.11 Atelectasis; J91.0 Malignant pleural effusion; Z51.5 Encounter for palliative care; E03.9 Hypothyroidism, unspecified; E11.9 Type 2 diabetes mellitus without complications; E78.5 Hyperlipidemia, unspecified; L89.311 Pressure ulcer of right buttock, stage 1; Z87.891 Personal history of nicotine dependence; Z66 Do not resuscitate; Z68.29 Body mass index [BMI] 29.0-29.9, adult
CPT/HCPCS: 36415; 36600; 71045; 71046; 71260; 80053; 80202; 82803; 83605; 83880; 84484; 85025; 87040; 87070; 87205; 93005; 93010; 94640; 94660; 94667; 94760; 94762; 96365; 96367; 96372-59; 96375; 99285-25; A9270; J0456; J0696; J1170; J1650; J1940; J1956; J2060; J2270; J2405; J2543; J2930; J3370; J7050; Q9967